=== PATIENT | female | born 1955 | race Caucasian/White ===

== ENCOUNTER 2017-08-30 14:08 | Emergency (ER) | payer MEDICARE ==
[~2017-08-30] VITALS: Ht 172.7 cm; Wt 68.0 kg
[~2017-08-30 14:08] MED LIST: ALBU90OI INH; ALBU90OI6 INH; ALPR.25 PO; ALPR.5; AMOX250 PO; ASPI81CH PO; CITA20 PO; CRUTCH2 XX; Catapres0.1 MG PO; Cymbalta60 MG; DIPH50 PO; DULO60 PO; GABA600 PO; HYDCHL25; HYDMOR2 PO; HYDMOR4; HYDRA25 PO; IBUP400 PO; LEVFLO500 PO; LORA10ER PO; MELATONIN 10 M1 EACH PO; METO25ER PO; METPRE4DP PO; MINO100 PO; OMEP10ER PO; ONDA4 PO; OXYACE5T PO; OXYC15ER PO; OXYC30ER PO; OXYC40ER PO; POTA10T PO; POTCHL10ER PO; POTCHL20ER PO; PRAM.5 PO; PSYL5.85P PO; Percocet 10-321 EACH PO; Percocet 5-3251 EACH PO; Roxicodone15 MG PO; SULTRIDS PO; TRAM50; VENL25 PO; ZOLP10 PO
[2017-08-30] MEDS ORDERED: Percocet 5-3251 EACH PO (14:53)
[2017-08-30] MEDS ORDERED: ASPI81CH PO (14:56)
[2018-02-22] MEDS ORDERED: Zofran Odt8 MG SL (13:24)
== END 2017-08-30 15:06 | disposition home or self-care (01) ==
LOC: ER 14:08
DX: K60.2 Anal fissure, unspecified (principal); F32.9 Major depressive disorder, single episode, unspecified; E78.5 Hyperlipidemia, unspecified; Z98.51 Tubal ligation status; Z88.5 Allergy status to narcotic agent; Z79.899 Other long term (current) drug therapy; Z79.82 Long term (current) use of aspirin
CPT/HCPCS: 99283

== ENCOUNTER 2017-09-05 10:24 | Emergency (ER) | payer MEDICARE ==
[~2017-09-05] VITALS: Ht 172.7 cm; Wt 65.8 kg
[2017-09-05] MEDS ORDERED: RECTASMOOTHE30 GM TOP (13:48)
[2017-09-05] MEDS ORDERED: Percocet 10-321 EACH PO (13:49)
[2018-02-22] MEDS ORDERED: Zofran Odt8 MG SL (13:24)
== END 2017-09-05 14:01 | disposition home or self-care (01) ==
LOC: ER 10:24
DX: K60.2 Anal fissure, unspecified (principal); F32.9 Major depressive disorder, single episode, unspecified; E78.5 Hyperlipidemia, unspecified; Z87.891 Personal history of nicotine dependence; Z88.5 Allergy status to narcotic agent; Z79.82 Long term (current) use of aspirin; Z79.899 Other long term (current) drug therapy
CPT/HCPCS: 99283

== ENCOUNTER 2017-10-04 17:57 | Emergency (ER) | payer MEDICARE ==
[~2017-10-04] VITALS: Ht 172.7 cm; Wt 65.8 kg
[~2017-10-04 17:57] MED LIST changes: +RECTASMOOTHE30 GM TOP
[2017-10-04] MEDS ORDERED: Percocet 5-3251 EACH PO (19:49)
[2017-10-04] MEDS ORDERED: Lomotil Tablet1 EACH PO (19:50)
[2018-02-22] MEDS ORDERED: Zofran Odt8 MG SL (13:24)
== END 2017-10-04 20:01 | disposition home or self-care (01) ==
LOC: ER 17:57
DX: K60.2 Anal fissure, unspecified (principal); K62.89 Other specified diseases of anus and rectum; Z88.5 Allergy status to narcotic agent; Z79.899 Other long term (current) drug therapy; Z79.891 Long term (current) use of opiate analgesic; Z79.82 Long term (current) use of aspirin; F32.9 Major depressive disorder, single episode, unspecified; E78.5 Hyperlipidemia, unspecified; Z87.891 Personal history of nicotine dependence
CPT/HCPCS: 99283

== ENCOUNTER 2017-11-14 10:14 | Emergency (ER) | payer MEDICARE ==
[~2017-11-14] VITALS: Ht 172.7 cm; Wt 61.2 kg
[~2017-11-14 10:14] MED LIST changes: +Lomotil Tablet1 EACH PO
[2017-11-14] MEDS ORDERED: HYDCHL25 PO (10:45)
[2017-11-14] MEDS ORDERED: RIFA300 PO (10:46)
[2017-11-14] MEDS ORDERED: CEPH250A PO (10:46)
[2017-11-14] MEDS ORDERED: METO25ER PO (10:47)
[2017-11-14] MEDS ORDERED: MONDOXYNE NL100 MG PO (10:47)
[2017-11-14] MEDS ORDERED: HYDR1TAB94 PO (10:59)
== END 2017-11-14 11:25 | disposition home or self-care (01) ==
LOC: ER 10:14
DX: R51 Headache (principal); J06.9 Acute upper respiratory infection, unspecified; A69.20 Lyme disease, unspecified; M79.1 Myalgia; Z88.5 Allergy status to narcotic agent; Z79.899 Other long term (current) drug therapy; Z79.82 Long term (current) use of aspirin; Z87.891 Personal history of nicotine dependence
CPT/HCPCS: 96372; 99283; J1885

== ENCOUNTER 2018-02-12 11:31 | Emergency (ER) | payer MEDICARE ==
[~2018-02-12] VITALS: Ht 175.3 cm; Wt 61.2 kg
[~2018-02-12 11:31] MED LIST changes: +CEPH250A PO; +HYDCHL25 PO; +HYDR1TAB94 PO; +MONDOXYNE NL100 MG PO; +RIFA300 PO
[2018-02-12] MEDS ORDERED: Voltaren100 GM TOP (12:44)
== END 2018-02-12 12:54 | disposition home or self-care (01) ==
LOC: ER 11:31
DX: M25.511 Pain in right shoulder (principal); M25.551 Pain in right hip; R51 Headache; W19.XXXA Unspecified fall, initial encounter; Z88.5 Allergy status to narcotic agent; Z79.899 Other long term (current) drug therapy; Z79.2 Long term (current) use of antibiotics; Z79.82 Long term (current) use of aspirin; Z79.891 Long term (current) use of opiate analgesic
CPT/HCPCS: 99282

== ENCOUNTER 2018-07-11 14:50 | Emergency (ER) | payer MEDICARE ==
[~2018-07-11] VITALS: Ht 175.3 cm; Wt 65.8 kg
[~2018-07-11 14:50] MED LIST changes: +Voltaren100 GM TOP; +Zofran Odt8 MG SL
[2018-07-11] MEDS ORDERED: CYCL10 PO (15:39)
== END 2018-07-11 15:56 | disposition home or self-care (01) ==
LOC: ER 14:50
DX: R07.81 Pleurodynia (principal); Z88.5 Allergy status to narcotic agent; Z79.899 Other long term (current) drug therapy; Z79.82 Long term (current) use of aspirin; Z87.891 Personal history of nicotine dependence
CPT/HCPCS: 96372; 99283-25; J1885

== ENCOUNTER 2019-08-01 13:57 | Day surgery (SDC) | payer MEDICARE ==
[~2019-08-01] VITALS: Ht 175.3 cm; Wt 64.0 kg
[~2019-08-01 13:57] MED LIST changes: +CYCL10 PO
== END 2019-08-01 16:57 | disposition home or self-care (01) ==
LOC: ORSCSDS 13:57
PROVIDERS: Internal Medicine Gastroenterology
PROC: 0DC68ZZ Extirpation of Matter from Stomach, Via Natural or Artificial Opening Endoscopic (ICD-10-PCS; principal; 2019-08-01 15:15)
PROC: 0DB68ZX Excision of Stomach, Via Natural or Artificial Opening Endoscopic, Diagnostic (ICD-10-PCS; principal; 2019-08-01 15:15)
PROC: 0DB98ZX Excision of Duodenum, Via Natural or Artificial Opening Endoscopic, Diagnostic (ICD-10-PCS; principal; 2019-08-01 15:15)
PROC: 0DB58ZX Excision of Esophagus, Via Natural or Artificial Opening Endoscopic, Diagnostic (ICD-10-PCS; principal; 2019-08-01 15:15)
DX: R13.10 Dysphagia, unspecified (principal); R10.84 Generalized abdominal pain; R63.4 Abnormal weight loss; R11.0 Nausea; R19.7 Diarrhea, unspecified; K20.8 Other esophagitis; K29.80 Duodenitis without bleeding; I10 Essential (primary) hypertension; E78.5 Hyperlipidemia, unspecified; A69.20 Lyme disease, unspecified; Z87.891 Personal history of nicotine dependence; Z79.899 Other long term (current) drug therapy
CPT/HCPCS: 87081; 88305; 88342; J2704; J7120

== ENCOUNTER → 2019-08-03 | Outpatient (CLI) | payer MEDICARE ==
[2019-08-05 17:07] LABS: FATS, NEUTRAL Normal (.); FATS, TOTAL Normal (.)
== END | disposition home or self-care (01) ==
LOC: LAB 16:45 → LAB SHORT 16:45 → LAB FUT 07-28 09:40
PROVIDERS: Internal Medicine Gastroenterology
DX: R10.84 Generalized abdominal pain (principal); R19.7 Diarrhea, unspecified; R11.0 Nausea; R63.4 Abnormal weight loss
CPT/HCPCS: 82705

== ENCOUNTER → 2019-09-26 | Outpatient (CLI) | payer MEDICARE ==
[2019-09-28 14:09] LABS: HPV 16 Negative (Negative); HPV 18 Negative (Negative); HPV OTHER HR TYPES Negative (Negative)
== END | disposition home or self-care (01) ==
LOC: LAB SHORT 19:01 → LAB 19:01
PROVIDERS: Physician Assistant
DX: Z01.419 Encounter for gynecological examination (general) (routine) without abnormal findings (principal); R39.198 Other difficulties with micturition
CPT/HCPCS: 87086; 87624; G0123

== ENCOUNTER 2020-10-14 14:58 | Emergency (ER) | payer MEDICARE, OTHER ==
[~2020-10-14] VITALS: Ht 175.3 cm; Wt 59.0 kg
[2020-10-14] MEDS ORDERED: LORA2 PO (15:12)
[2020-10-14 15:34] LABS: BASOPHILS ABSOLUTE AUTO 0.06 K/mm3 (0.00-0.23); BASOPHILS PERCENT AUTO 1 % (0-2); EOSINOPHILS ABSOLUTE AUTO 0.03 K/mm3 (0.00-0.68); EOSINOPHILS PERCENT AUTO 0 % (0-6); Hematocrit 50.5 % (33.0-51.0); Hemoglobin 17.3 g/dL (11.5-16.0); IMMATURE GRAN ABSOLUTE AUTO 0.02 K/mm3 (0.00-0.10); IMMATURE GRAN PERCENT AUTO 0 % (0-1); LYMPHOCYTES ABSOLUTE AUTO 2.05 K/mm3 (0.84-5.20); LYMPHOCYTES PERCENT AUTO 27 % (21-46); MONOCYTES ABSOLUTE AUTO 0.72 K/mm3 (0.16-1.47); MONOCYTES PERCENT AUTO 9 % (4-13); Mean Corpuscular HGB 30.5 pg (26.0-34.0); Mean Corpuscular HGB Conc 34.3 g/dL (31.5-36.5); Mean Corpuscular Volume 89 fL (80-100); Mean Platelet Volume 9.8 fL (9.1-12.4); NEUTROPHILS PERCENT AUTO 62 % (41-73); Platelet Count 310 K/mm3 (150-400); RDW Coefficient Variation 11.9 % (11.7-14.2); RDW Standard Deviation 38.9 fL (35.1-46.3); Red Blood Cell Count 5.68 M/mm3 (3.80-5.20); White Blood Cell Count 7.68 K/mm3 (4.00-11.30)
[2020-10-14 15:45] LABS: Alanine Aminotransfer (ALT/SGP 22 U/L (12-78); Albumin/Globulin Ratio 1.1 (0.8-1.8); Alk Phos 77 U/L (50-136); Anion Gap 6 mmol/L (6-16); Aspartate Aminotrans (AST/SGOT 17 U/L (12-37); Bilirubin, Total 0.6 mg/dL (0.1-1.0); Blood Urea Nitrogen 9 mg/dL (8-24); Bun/Creatinine Ratio 16.9 (12.0-20.0); CO2, Blood 33 mmol/L (21-32); Chloride, Blood 96 mmol/L (98-108); Creatinine, Blood 0.53 mg/dL (0.40-1.00); Globulin, Blood 3.8 g/dL (2.2-4.0); Glomerular Filtration Rate >60 (60-); Glucose, Blood 108 mg/dL (70-99); Potassium, Blood 3.8 mmol/L (3.5-5.5); Sodium, Blood 135 mmol/L (136-145); Total Protein, Blood 7.8 g/dL (6.4-8.2)
[2020-10-14 17:31] LABS: Source, Urine Clean Catch
[2020-10-14 17:51] LABS: Appearance, Urine Hazy (Clear); Bilirubin, Urine Neg (Neg); Blood, Urine Neg (Neg); Color, Urine Yellow (P-Yellow); Glucose Qualitative, Urine Neg (Neg); Ketones, Urine Neg (Neg); Leukocyte Esterase, Urine 1+ (Neg); Nitrite, Urine Neg (Neg); Protein, Urine 2+ (Neg); Specific Gravity, Urine 1.025 (1.003-1.022); Urobilinogen, Urine NORM (Normal)
[2020-10-14 18:06] LABS: Red Blood Cells, Urine 0-2 /hpf (0-2); White Blood Cells, Urine 0-2 /hpf (0-5)
[2020-10-14 18:07] LABS: Squamous Epithelial Cells Few /hpf (Few)
[2020-10-14 18:08] LABS: Bacteria Few /hpf; Mucus Mod (0-Heavy)
[2020-10-14] MEDS ORDERED: ONDA4 PO (18:21)
== END 2020-10-14 18:33 | disposition home or self-care (01) ==
LOC: ER 14:58
PROVIDERS: Physician Assistant
DX: N20.0 Calculus of kidney (principal); Z88.5 Allergy status to narcotic agent; Z79.899 Other long term (current) drug therapy; Z87.891 Personal history of nicotine dependence
CPT/HCPCS: 74176; 80053; 81001; 83690; 85025; 87086; 96374; 99285-25; A9270; J2405

== ENCOUNTER 2022-07-04 08:21 | Emergency (ER) | payer MEDICARE, OTHER ==
[~2022-07-04] VITALS: Ht 175.3 cm; Wt 59.0 kg
[~2022-07-04 08:21] MED LIST changes: +LORA2 PO
[2022-07-04 09:25] LABS: BASOPHILS ABSOLUTE AUTO 0.04 K/mm3 (0.00-0.23); BASOPHILS PERCENT AUTO 1 % (0-2); EOSINOPHILS ABSOLUTE AUTO 0.02 K/mm3 (0.00-0.68); EOSINOPHILS PERCENT AUTO 0 % (0-6); Hematocrit 51.6 % (33.0-51.0); Hemoglobin 17.7 g/dL (11.5-16.0); IMMATURE GRAN ABSOLUTE AUTO 0.02 K/mm3 (0.00-0.10); IMMATURE GRAN PERCENT AUTO 0 % (0-1); LYMPHOCYTES ABSOLUTE AUTO 1.74 K/mm3 (0.84-5.20); LYMPHOCYTES PERCENT AUTO 22 % (21-46); MONOCYTES ABSOLUTE AUTO 0.51 K/mm3 (0.16-1.47); MONOCYTES PERCENT AUTO 7 % (4-13); Mean Corpuscular HGB 30.6 pg (26.0-34.0); Mean Corpuscular HGB Conc 34.3 g/dL (31.5-36.5); Mean Corpuscular Volume 89 fL (80-100); Mean Platelet Volume 9.4 fL (9.1-12.4); NEUTROPHILS PERCENT AUTO 70 % (41-73); Platelet Count 277 K/mm3 (150-400); RDW Coefficient Variation 11.9 % (11.7-14.2); RDW Standard Deviation 38.8 fL (35.1-46.3); Red Blood Cell Count 5.79 M/mm3 (3.80-5.20); White Blood Cell Count 7.83 K/mm3 (4.00-11.30)
[2022-07-04 09:46] LABS: Albumin, Blood 4.4 g/dL (3.4-5.0); Albumin/Globulin Ratio 1.1 (0.8-1.8); Bilirubin, Total 0.7 mg/dL (0.1-1.0); Bun/Creatinine Ratio 16.8 (12.0-20.0); Creatinine, Blood 0.54 mg/dL (0.40-1.00); Potassium, Blood 3.8 mmol/L (3.5-5.5); Total Protein, Blood 8.4 g/dL (6.4-8.2)
[2022-07-04] MEDS ORDERED: DICY20 PO (12:35)
[2022-07-04] MEDS ORDERED: ONDA4ODT MM (12:35)
== END 2022-07-04 12:40 | disposition home or self-care (01) ==
LOC: ER 08:21
PROVIDERS: Physician Assistant
DX: M54.50 Low back pain, unspecified (principal); R10.30 Lower abdominal pain, unspecified; G89.29 Other chronic pain; R11.0 Nausea; Z88.5 Allergy status to narcotic agent; Z79.899 Other long term (current) drug therapy
CPT/HCPCS: 36415; 74177; 80053; 83605; 83690; 85025; J1790; J1885; J7030; Q9967

== ENCOUNTER → 2022-08-05 | Outpatient (CLI) | payer MEDICARE, OTHER ==
[~2022-08-05] MED LIST changes: +DICY20 PO; +ONDA4ODT MM
[2022-08-05 22:25] LABS: C-REACTIVE PROTEIN, EXT RANGE <0.290 mg/dL (0.000-0.300); CHOL/HDL RATIO 3.5; Cholesterol 268 mg/dL (50-200); HDL Cholesterol 76 mg/dL (>39); LDL/HDL RATIO 2.1; Low Density Lipoprotein Chol 161 mg/dL (0-110); Triglycerides 156 mg/dL (30-160); Very Low Density Lipoprot Chol 31 mg/dL (6-32)
== END | disposition home or self-care (01) ==
LOC: LAB SHORT 16:12 → LAB 16:12
PROVIDERS: Physician Assistant
DX: M25.50 Pain in unspecified joint (principal); I10 Essential (primary) hypertension; Z79.899 Other long term (current) drug therapy
CPT/HCPCS: 80061; 82306; 84443; 85651; 86038; 86140; 86430

== ENCOUNTER → 2022-12-08 | Outpatient (CLI) | payer MEDICARE, OTHER ==
[2022-12-09 13:32] LABS: Adenovirus F 40/41 Not Detected (NOT DETECT); Astrovirus Not Detected (NOT DETECT); Campylobacter Sp Not Detected (NOT DETECT); Cyclospora Cayetanensis Not Detected (NOT DETECT); E. Coli O157 Not Detected (NOT DETECT); Entamoeba Histolytica Not Detected (NOT DETECT); Enteroaggregative E. coli-EAEC Not Detected (NOT DETECT); Enteropathogenic E. coli-EPEC Not Detected (NOT DETECT); Enterotoxigenic E. coli-ETEC Not Detected (NOT DETECT); Giardia Lamblia Not Detected (NOT DETECT); Norovirus GI/GII Not Detected (NOT DETECT); Plesiomonas Shigelloides Not Detected (NOT DETECT); Rotavirus A Not Detected (NOT DETECT); Salmonella Sp Not Detected (NOT DETECT); Sapovirus Not Detected (NOT DETECT); Shiga Toxin-prod E. coli-STEC Not Detected (NOT DETECT); Shigella/Enteroin E. coli-EIEC Not Detected (NOT DETECT); Vibrio Cholerae Not Detected (NOT DETECT); Vibrio Sp Not Detected (NOT DETECT); Yersinia Enterocolitica Not Detected (NOT DETECT)
[2022-12-09 13:34] LABS: Cryptosporidium Not Detected (NOT DETECT)
== END | disposition home or self-care (01) ==
LOC: LAB SHORT 05:35 → LAB 05:35
PROVIDERS: Physician Assistant
DX: R19.7 Diarrhea, unspecified (principal)
CPT/HCPCS: 87324; 87507

== ENCOUNTER 2023-02-27 11:36 | Day surgery (SDC) | payer MEDICARE, OTHER ==
[~2023-02-27] VITALS: Ht 172.7 cm; Wt 60.5 kg
[2023-02-27] VITALS (12 sets, daily range): BP systolic 109–143; BP diastolic 56–108
[~2023-02-27 11:36] MED LIST changes: +DIPATR PO; +HYOS.125 PO; +LACT; +MULVITA PO; +OMEP20ER PO
[2023-02-27] MEDS ORDERED: DULO30 PO (12:00)
--- NOTE | 2023-02-27 12:26 | NUR ---
History, Chart, Medications and Allergies reviewed before start of procedure.Patient confirms NPO status and agrees with scheduled surgery. Lungs clear T/O to Auscultation. Patient States Post-Procedure ride home has been arranged.
--- NOTE | 2023-02-27 12:41 | NUR ---
02/27/23 1241 David Corona HISTORY, CHART, MEDICATIONS AND ALLERGIES REVIEWED BEFORE START OF PROCEDURE. PATIENT CONFIRMS NPO STATUS AND AGREES WITH SCHEDULED PROCEDURE. 3-LEAD EKG REVIEWED WITH PHYSICIAN PRIOR TO START OF PROCEDURE. MONITOR INTACT WITH CONTINUOUS PULSE OXIMETRY,CAPNOGRAPHY, 3-LEAD EKG, INTERMITTENT BP. SUPPLEMENTAL O2 TO BE TITRATED THROUGHOUT PROCEDURE TO MAINTAIN O2 SATURATION ABOVE 90%. PATIENT DETERMINED TO BE ASA APPROPRIATE FOR PROPOFOL SEDATION PRIOR TO START OF PROCEDURE BY . NC AT 3L/MIN
--- NOTE | 2023-02-27 12:54 | NUR ---
REPORT RECIED. PT SITTING UP IN BED. VSS ON ROOM AIR
--- NOTE | 2023-02-27 13:18 | NUR ---
Patient up to Ambulate independently. Gait steady. Discharge instructions reviewed with patient. Patient verbalizes understanding. Copy given to patient to take home. Discharged via wheelchair to private car for ride home.
== END 2023-02-27 13:25 | disposition home or self-care (01) ==
LOC: ORSCMMR 11:36 → ORD 12:45 → ORSCMMR 12:45
PROVIDERS: Internal Medicine Gastroenterology
PROC: 0DB98ZX Excision of Duodenum, Via Natural or Artificial Opening Endoscopic, Diagnostic (ICD-10-PCS; principal; 2023-02-27 12:45)
PROC: 0DB68ZX Excision of Stomach, Via Natural or Artificial Opening Endoscopic, Diagnostic (ICD-10-PCS; principal; 2023-02-27 12:45)
DX: R10.84 Generalized abdominal pain (principal); R11.2 Nausea with vomiting, unspecified; R19.4 Change in bowel habit; K29.70 Gastritis, unspecified, without bleeding; K44.9 Diaphragmatic hernia without obstruction or gangrene; K29.80 Duodenitis without bleeding; Q40.2 Other specified congenital malformations of stomach; Z83.71 Family history of colonic polyps; F41.9 Anxiety disorder, unspecified; Z87.891 Personal history of nicotine dependence; Z79.899 Other long term (current) drug therapy
CPT/HCPCS: 88305; 88342; J2704; J7120

== ENCOUNTER → 2023-05-19 | Outpatient (CLI) | payer MEDICARE, OTHER ==
[~2023-05-19] MED LIST changes: +ATOR40TA PO; +DRAMAMINE25 M1 PO; +DRAMAMINE25 M3 PO; +DULO30 PO; +DULOXETINE HCL60 M1 PO; +LORAZEPAM0.5 MG PO; +MELO7.5 PO; +MOBIC15 MG PO; -POTCHL20ER PO; -TRAM50; +TRAM50 PO
[2023-05-19 18:56] LABS: Bilirubin, Total 0.3 mg/dL (0.1-1.0); Bun/Creatinine Ratio 17.2 (12.0-20.0); Creatinine, Blood 0.82 mg/dL (0.40-1.00); Globulin, Blood 4.1 g/dL (2.2-4.0); Potassium, Blood 4.1 mmol/L (3.5-5.5); Total Protein, Blood 8.1 g/dL (6.4-8.2)
[2023-05-20 11:40] LABS: Candida species (DNA Probe) Negative (NEGATIVE); G. vaginalis (DNA Probe) Negative (NEGATIVE); T. vaginalis (DNA Probe) Negative (NEGATIVE)
[2023-05-22 13:09] LABS: A/G RATIO 1.1 (0.7-1.7); ALBUMIN 3.7 g/dL (2.9-4.4); ALPHA-1-GLOBULIN 0.4 g/dL (0.0-0.4); ALPHA-2-GLOBULIN 0.9 g/dL (0.4-1.0); BETA GLOBULIN 1.1 g/dL (0.7-1.3); GAMMA GLOBULIN 0.9 g/dL (0.4-1.8); GLOBULIN, TOTAL 3.3 g/dL (2.2-3.9); M-SPIKE Not Observed g/dL (Not Observed)
== END | disposition home or self-care (01) ==
LOC: LAB SHORT 17:15 → LAB 17:15
PROVIDERS: Physician Assistant
DX: E87.1 Hypo-osmolality and hyponatremia (principal); N89.8 Other specified noninflammatory disorders of vagina; R79.89 Other specified abnormal findings of blood chemistry
CPT/HCPCS: 80053; 84165; 87480; 87510; 87660

== ENCOUNTER 2023-06-27 12:55 | Inpatient (IN) | payer MEDICARE, OTHER ==
[~2023-06-27] VITALS: Ht 165.1 cm; Wt 59.9 kg
[2023-06-27 13:25] LABS: PCO2 Venous 45.6 mmHg (38-42); pH Blood Venous 7.42 (7.34-7.37)
[2023-06-27 13:26] LABS: Base Excess Venous 5.2 mmol/L; Bicarbonate Venous 28.3 mmol/L (24.0-30.0)
[2023-06-27 13:29] LABS: BASOPHILS ABSOLUTE AUTO 0.08 K/mm3 (0.00-0.23); BASOPHILS PERCENT AUTO 1 % (0-2); EOSINOPHILS ABSOLUTE AUTO 0.02 K/mm3 (0.00-0.68); EOSINOPHILS PERCENT AUTO 0 % (0-6); Hematocrit 48.5 % (33.0-51.0); Hemoglobin 15.9 g/dL (11.5-16.0); IMMATURE GRAN ABSOLUTE AUTO 0.09 K/mm3 (0.00-0.10); IMMATURE GRAN PERCENT AUTO 1 % (0-1); LYMPHOCYTES PERCENT AUTO 7 % (21-46); MONOCYTES ABSOLUTE AUTO 0.76 K/mm3 (0.16-1.47); MONOCYTES PERCENT AUTO 5 % (4-13); Mean Corpuscular HGB 30.1 pg (26.0-34.0); Mean Corpuscular HGB Conc 32.8 g/dL (31.5-36.5); Mean Corpuscular Volume 92 fL (80-100); Mean Platelet Volume 9.5 fL (9.1-12.4); NEUTROPHILS ABSOLUTE AUTO 13.81 K/mm3 (1.96-9.15); NEUTROPHILS PERCENT AUTO 87 % (41-73); Platelet Count 351 K/mm3 (150-400); RDW Coefficient Variation 11.9 % (11.7-14.2); RDW Standard Deviation 40.3 fL (35.1-46.3); Red Blood Cell Count 5.28 M/mm3 (3.80-5.20); White Blood Cell Count 15.86 K/mm3 (4.00-11.30)
[2023-06-27 13:41] LABS: Albumin, Blood 4.2 g/dL (3.4-5.0); Albumin/Globulin Ratio 1.3 (0.8-1.8); Bilirubin, Total 0.4 mg/dL (0.1-1.0); Bun/Creatinine Ratio 19.3 (12.0-20.0); Creatinine, Blood 0.57 mg/dL (0.40-1.00); Globulin, Blood 3.2 g/dL (2.2-4.0); Potassium, Blood 3.8 mmol/L (3.5-5.5); Total Protein, Blood 7.4 g/dL (6.4-8.2)
[2023-06-27 14:00] LABS: Calcium, Ionized (POC) 1.04 mmol/L (1.10-1.46); Chloride (POC) 101 mmol/L (98-108); Creatinine (POC) 0.5 mg/dL (0.6-1.0); Glucose (ISTAT POC) 111 mg/dL (70-99); Hemoglobin (POC) 16.7 g/dL (12.0-16.0); Potassium (POC) 3.7 mmol/L (3.5-5.5); Sodium (POC) 139 mmol/L (135-148); Total CO2 (POC) 28 mmol/L (21-32)
[2023-06-27 14:19] LABS: International Normalized Ratio 0.98; Prothrombin Time Results 10.3 Sec (9.7-11.5)
[2023-06-27 14:26] LABS: Source, Urine Foley catheter
[2023-06-27 14:40] LABS: Appearance, Urine Clear (Clear); Bilirubin, Urine Neg (Neg); Blood, Urine Neg (Neg); Color, Urine Yellow (P-Yellow); Glucose Qualitative, Urine Neg (Neg); Ketones, Urine Neg (Neg); Leukocyte Esterase, Urine Neg (Neg); Nitrite, Urine Neg (Neg); Protein, Urine Neg (Neg); Specific Gravity, Urine 1.015 (1.003-1.022); Urobilinogen, Urine NORM (Normal)
[2023-06-27] MEDS ORDERED: TRAM50 PO (14:56)
[2023-06-27] MEDS ORDERED: HYDCHL25 PO (14:57)
[2023-06-27 15:19] LABS: U Amphetamine Screen Not Detected; U Barbituate Screen Not Detected; U Benzodiazapine Screen DETECTED; U Buprenorphine Screen Not Detected; U Cannabinoids Screen Not Detected; U Cocaine Screen Not Detected; U Methadone Screen Not Detected; U Methamphetamine Screen Not Detected; U Opiates Screen Not Detected; U Oxycodone Screen Not Detected; U Phencyclidine Screen Not Detected
[2023-06-27 17:09] LABS: Prolactin 11.5 ng/mL (2.74-19.64)
[2023-06-27 17:11] LABS: Thyroid Stimulating Hormone 0.633 uIU/mL (0.360-4.800)
[2023-06-27 17:15] VITALS: BP 132/77
[2023-06-27 17:30] VITALS: BP 117/68
--- NOTE | 2023-06-27 17:42 | NUR ---
PT ADMITTED TO ICU AT 1715. PT ARRIVED ON [facility] VENT W PROPOFOL INITIALLY AT 50MCG. PT MOVING ALL 4 EXTREMITIES, PUPILS 3/3 SLUGGISH, BREATHING OVER VENT. PT DOES NOT OPENS EYES TO COMMAND OR FOLLOW SIMPLE COMMANDS. PROPOFOL DECREASED TO 20MCG. DR POP AT BEDSIDE WITHIN MINUTES OF ADMIT. CRITICAL HIGH TROPONIN GIVEN TO DR POP. PT IN WHAT APPEARS TO BE SINUS TACH W RATE 130'S. BP STABLE. FAMILY AT BEDSIDE AT 1730; PT'S DAUGHTER, RSLDCOSS-EA-UQY AND SON WHOM IS "DECISION MAKER". FAMILY DISCUSSED CODE STATUS AND PT'S WISHES. PT WAS DNR/DNI; ER UNAWARE WHEN PT INTUBATED. PT FAMILY REQUEST PT BE EXTUBATED AND PLACED ON COMFORT CARE. DR POP PLACING ORDERS NOW. LUNGS CLEAR, DIMINISHED TO BASES. BT'S ACTIVE T/O. NO EDEMA. FAINT PULSES T/O. CAP REFILL <3SEC. OGT CLAMPED. 8.0 TUBE AT 24CM TO LIP. SKIN PALE BUT WARM.
[2023-06-27 17:45] VITALS: BP 114/79
[2023-06-27 18:00] VITALS: BP 127/84
--- NOTE | 2023-06-27 18:01 | NUR ---
DR PLUMMER UPDATED. FAMILY IS READY FOR PT TO BE EXTUBATED TO COMFORT CARE. RT NOTIFIED.
--- NOTE | 2023-06-27 18:59 | NUR ---
PT EXTUBATED TO RA AT 1850. PT APPEARS COMFORTABLE, MINIMALLY RESPONSIVE. SATS 93%. RESP EVEN AND UNLABORED. FAMILY AT BEDSIDE.
--- NOTE | 2023-06-27 21:28 | NUR ---
ASSUMPTION OF CARE THIS RN ASSUMED CARE OF PT AT 1900, REPORT FROM ADILIA TOMLIN. PT NON-RESPONSIVE AT THIS TIME, NOT OPENING EYES. PT SPONTANEOUSLY MOVING EXTREMITIES BUT NO PURPOSEFUL MOVEMENT, LOCALIZING PAIN. VSS, PT COMFORT CARE, FAMILY AT BEDSIDE. THIS RN AND DAYSHIFT RN ANSWERED FAMILY'S QUESTIONS WELL PROVIDED EDUCATION ABOUT COMFORT CARE AND CARE PLAN CURRENTLY IN PLACE. SHINE CATHETER PATENT AND DRAINING CLEAR, YELLOW URINE TO GRAVITY.
[2023-06-27 22:55] VITALS: BP 141/85
[2023-06-28] VITALS (7 sets, daily range): BP systolic 15–157; BP diastolic 68–96
--- NOTE | 2023-06-28 01:22 | NUR ---
UPDATE AROUND 0100, THIS RN IN TO ROUND AND REPOSITION PT, PT IS BEING TURNED HER EYES OPENED. PT ASKING "WHAT HAPPEN, WHERE AM I". THIS RN ABLE TO REORIENT PT TO PLACE, TIME AND EVENT. PT ABLE TO STATE HER FULL NAME BUT UNABLE TO VERBALIZE . PT ABLE TO SAY "YES" WHEN ASKED IF SHE KNOWS HER . PT UNABLE TO RECALL PLACE OR ANY RECOLLECTION OF EVENT. PT FOLLOWING MOST COMMANDS, STRENGTH INTACT BLE AND ULE. VS; HRR - SINUS TACH HR 130 - 150'S, BP 169/110, RR 21, AND SPO2 93% ON RA. THIS RN NOTIFIED HOSPITALIST, NEW ORDERS FOR 5 ML LOPRESSOR IV PUSH. NEW ORDERS PLACED, THIS RN WILL ADMINISTER, REASSESS AND MONITOR NEEDED.
--- NOTE | 2023-06-28 05:02 | NUR ---
SHIFT SUMMARY PT MORE ALERT ALTHOUGH STILL SOMNOLENT, HOWEVER IS NOW RESPONDING AND OPENING EYES TO SOUND AND TACTILE STIMULI. PT IS STILL DISORIENTED TO EVENT, TIME AND PLACE. PT IS BEGINNING TO RESPOND IN MORE FULL AND COHERENT SENTENCES. PT ABLE TO ANSWER Y/N QUESTIONS WELL BUT VERBAL RESPONSES ARE SLOWED AND PT GROGGY. PT PT ABLE TO VERBALIZE THAT SHE "FEELS WEIRD AND FUNNY" BUT UNABLE TO STATE WHY OR WHERE. VSS AFTER ADMINISTRATION OF IV LOPRESSOR PUSH FOR HR; SEE PREVIOUS NURSING NOTE. SBP 140'S, HR 80 - 90'S, SPO2 91 - 94, AFEBRILE. PT ABLE TO VERBALIZE GENERAL PAIN, STATES " I AM ALWAYS IN PAIN". DECLINES MEDICATION FOR PAIN AT THIS TIME. THIS RN DOES NOT PT HAVING TREMORS/RIGIDITY IN BUE OCCASSIONALLY; UNKNOWN IF THIS IS BASELINE OR NOT. CURRENTLY PT IS RESTING, CALL LIGHT IN REACH. SHINE CATHETER PATENT AND DRAINING CLEAR, YELLOW URINE; 1100 MLS URINE OUTPUT.
--- NOTE | 2023-06-28 08:28 | NUR ---
CARE OF PT ASSUMED AT 0700. PT AWAKE AND ALERT IN BED. PT ORIENTED TO SELF AND KNOWS SHE'S IN THE HOSPITAL. PT HAS SOME DIFFICULTY STATING YEAR AND BIRTHDATE, PT HAS SYMPTOMS OF EXPRESSIVE APHASIA, SOME OF HER STATES ARE CONFUSED WELL. PT COMPLAINTS OF "SPINNING DIZZINESS". SINUS TACH AT 109, SATS 93% ON RA. DR PLUMMER UPDATED THIS AM; PALIATIVE CARE ORDERED, MESSAGE LEFT. DR POP AT BEDSIDE THIS AM. FÁTIMA IVY'Kell THIS AM. PT ABLE TO TOLERATE SIPS OF WATER.
[2023-06-28 08:32] LABS: BASOPHILS ABSOLUTE AUTO 0.04 K/mm3 (0.00-0.23); BASOPHILS PERCENT AUTO 0 % (0-2); EOSINOPHILS PERCENT AUTO 0 % (0-6); Hematocrit 45.4 % (33.0-51.0); IMMATURE GRAN ABSOLUTE AUTO 0.05 K/mm3 (0.00-0.10); IMMATURE GRAN PERCENT AUTO 0 % (0-1); LYMPHOCYTES ABSOLUTE AUTO 1.53 K/mm3 (0.84-5.20); LYMPHOCYTES PERCENT AUTO 10 % (21-46); MONOCYTES ABSOLUTE AUTO 1.58 K/mm3 (0.16-1.47); MONOCYTES PERCENT AUTO 10 % (4-13); Mean Corpuscular HGB 29.9 pg (26.0-34.0); Mean Corpuscular Volume 91 fL (80-100); Mean Platelet Volume 9.5 fL (9.1-12.4); NEUTROPHILS ABSOLUTE AUTO 12.96 K/mm3 (1.96-9.15); NEUTROPHILS PERCENT AUTO 80 % (41-73); Platelet Count 314 K/mm3 (150-400); RDW Coefficient Variation 12.3 % (11.7-14.2); RDW Standard Deviation 40.3 fL (35.1-46.3); Red Blood Cell Count 5.01 M/mm3 (3.80-5.20); White Blood Cell Count 16.16 K/mm3 (4.00-11.30)
[2023-06-28 08:59] LABS: Albumin, Blood 3.9 g/dL (3.4-5.0); Albumin/Globulin Ratio 1.3 (0.8-1.8); Bilirubin, Total 0.7 mg/dL (0.1-1.0); Calcium, Blood 9.5 mg/dL (8.5-10.1); Creatinine, Blood 0.56 mg/dL (0.40-1.00); Potassium, Blood 3.8 mmol/L (3.5-5.5); Total Protein, Blood 6.9 g/dL (6.4-8.2)
--- NOTE | 2023-06-28 10:58 | NUR ---
PT'S STATES THERE ARE [address] YEBOAH CONSULTED FOR POSSIBLE UNITENTIONAL OD, DR YEBOAH AT BEDSIDE, WILL RE-EVALUATE TOMORROW WHEN PT MORE CLEAR/LESS CONFUSED.
--- NOTE | 2023-06-28 17:49 | NUR ---
SHIFT SUMMARY PATIENT TRANSFERED FROM ICU AT APPROX 1400. PATIENT ALERT AND INTERACTIVE BUT CONFUSED. PATIENT ABLE TO BE REORIENTED BUT NEEDING TO BE FREQUENTLY. PATIENT STATING SHE CAN HERE HER KIDS FIGHTING IN THE [place] BUT FAMILY NOT PRESENT. PATIENT CONFUSED ABOUT DAY OF THE WEEK, TIME OF DAY AND WHAT HAPPENED. PATIENT COUGHING UP THICK YELLOW SECRETIONS AT TIMES. CONTINUES TO HAVE EPISODES OF DIZZINESS ESPECIALLY WITH ANY SUDDEN MOVEMENTS.
[2023-06-28] MEDS ORDERED: Aspir 8181 MG PO (21:19)
[2023-06-28] MEDS ORDERED: ATOM40 PO (21:19)
[2023-06-28] MEDS ORDERED: MECL25 PO (21:21)
[2023-06-28] MEDS ORDERED: MOBIC15 MG PO (21:21)
[2023-06-28] MEDS ORDERED: OMEP20ER PO (21:22)
[2023-06-28] MEDS ORDERED: MULVITA PO (21:22)
[2023-06-28] MEDS ORDERED: ONDA4ODT MM (21:22)
[2023-06-28] MEDS ORDERED: LISI20 PO (21:24)
[2023-06-28] MEDS ORDERED: BACLOFEN10 M4 PO (21:25)
[2023-06-28] MEDS ORDERED: Bentyl20 MG PO (21:25)
[2023-06-28] MEDS ORDERED: Diclofenac Sodi50 MG PO (21:26)
[2023-06-29 03:35] VITALS: BP 145/77
--- NOTE | 2023-06-29 05:28 | NUR ---
LIVESTOCK AUCTIONEER SUMMARY AWAKE AT INTERVALS. VSS. ASSISTED WITH BED PEREA A FEW TIMES TO VOID, SLIGHT BM NOTED WELL. VOICED NAUSEA BUT WAS ASLEEP WHEN NURSE RETURNED TO ROOM LATER. RAILS UP X 3 AND CALL LIGHT IN REACH FOR SAFETY. WILL CONTIUE TO MONITOR
[2023-06-29 05:44] LABS: BASOPHILS ABSOLUTE AUTO 0.06 K/mm3 (0.00-0.23); BASOPHILS PERCENT AUTO 1 % (0-2); EOSINOPHILS ABSOLUTE AUTO 0.02 K/mm3 (0.00-0.68); EOSINOPHILS PERCENT AUTO 0 % (0-6); Hematocrit 46.1 % (33.0-51.0); Hemoglobin 15.1 g/dL (11.5-16.0); IMMATURE GRAN ABSOLUTE AUTO 0.02 K/mm3 (0.00-0.10); IMMATURE GRAN PERCENT AUTO 0 % (0-1); LYMPHOCYTES ABSOLUTE AUTO 1.91 K/mm3 (0.84-5.20); LYMPHOCYTES PERCENT AUTO 20 % (21-46); MONOCYTES PERCENT AUTO 8 % (4-13); Mean Corpuscular HGB 30.1 pg (26.0-34.0); Mean Corpuscular HGB Conc 32.8 g/dL (31.5-36.5); Mean Corpuscular Volume 92 fL (80-100); Mean Platelet Volume 9.4 fL (9.1-12.4); NEUTROPHILS ABSOLUTE AUTO 6.79 K/mm3 (1.96-9.15); NEUTROPHILS PERCENT AUTO 71 % (41-73); Platelet Count 270 K/mm3 (150-400); RDW Coefficient Variation 12.3 % (11.7-14.2); RDW Standard Deviation 41.7 fL (35.1-46.3); Red Blood Cell Count 5.01 M/mm3 (3.80-5.20)
[2023-06-29 07:35] VITALS: BP 147/84
[2023-06-29 10:35] VITALS: BP 144/73
--- NOTE | 2023-06-29 11:27 | NUR ---
1020- NOTIFIED MD TORIBIO OF PT'S INCREASE IN HR AND CHANGE IN RHYTHM SINCE PT UP TO BSC. SAID TO GIVE 5MG IV METOPROLOL IV PUSH NOW.
[2023-06-29 12:13] LABS: International Normalized Ratio 0.97; Prothrombin Time Results 10.2 Sec (9.7-11.5)
[2023-06-29 13:08] VITALS: BP 138/93
[2023-06-29 15:31] VITALS: BP 148/82
[2023-06-29 19:16] VITALS: BP 148/77
--- NOTE | 2023-06-29 19:23 | NUR ---
SUMMARY- AAOX2-3, X2 ASSIST TO BSC. ACUTE EVENTS DOCUMENTED IN EARLIER NOTES.
--- NOTE | 2023-06-29 19:59 | NUR ---
VSS. CHEST DISCOMFORT MINIMAL PER PT STATEMENT. HOB ELEVATED. NO NOTED ACUTE DISTRESS. CALL LIGHT IN REACH. RAILS UP X 2. WILL CONT TO MONITOR
[2023-06-30 03:18] VITALS: BP 143/70
[2023-06-30 03:31] LABS: BASOPHILS ABSOLUTE AUTO 0.04 K/mm3 (0.00-0.23); BASOPHILS PERCENT AUTO 1 % (0-2); EOSINOPHILS ABSOLUTE AUTO 0.11 K/mm3 (0.00-0.68); EOSINOPHILS PERCENT AUTO 1 % (0-6); Hemoglobin 14.5 g/dL (11.5-16.0); IMMATURE GRAN ABSOLUTE AUTO 0.03 K/mm3 (0.00-0.10); IMMATURE GRAN PERCENT AUTO 0 % (0-1); LYMPHOCYTES ABSOLUTE AUTO 2.12 K/mm3 (0.84-5.20); LYMPHOCYTES PERCENT AUTO 26 % (21-46); MONOCYTES ABSOLUTE AUTO 0.73 K/mm3 (0.16-1.47); MONOCYTES PERCENT AUTO 9 % (4-13); Mean Corpuscular HGB Conc 32.2 g/dL (31.5-36.5); Mean Corpuscular Volume 93 fL (80-100); Mean Platelet Volume 9.4 fL (9.1-12.4); NEUTROPHILS PERCENT AUTO 63 % (41-73); Platelet Count 250 K/mm3 (150-400); RDW Coefficient Variation 11.9 % (11.7-14.2); RDW Standard Deviation 41.1 fL (35.1-46.3); Red Blood Cell Count 4.84 M/mm3 (3.80-5.20); White Blood Cell Count 8.13 K/mm3 (4.00-11.30)
[2023-06-30 03:57] LABS: Bun/Creatinine Ratio 40.8 (12.0-20.0); Calcium, Blood 8.8 mg/dL (8.5-10.1); Creatinine, Blood 0.49 mg/dL (0.40-1.00); Potassium, Blood 3.5 mmol/L (3.5-5.5)
--- NOTE | 2023-06-30 06:14 | NUR ---
ADHESIVE BANDAGE MACHINE OPERATOR SUMMARY VSS. HEPARIN DRIP CONTINUES, LABS DRAWN AND DRIP WAS CHANGED TO 17 U/KG, AT 20.4 ML/HR. WAS NAUSEATED AND MD NOTIFIED AND PT RECEIVED ZOFRAN IV, MED EFFECTIVE. INTERMITTENT CONGESTED COUGH, BUT LUNG SOUNDS NOT CONGESTED, BUT DIMINISHED PER AUSCULTATION. MD ORDERED TESSALON PERLS. HAS BUSHRA RETING QUIETLY AT INTERVALS, AWAKE INTERMITTENTLY AND REQUESTED BEDPAN FOR VOIDING. NO C/O CHEST PAIN. NO NOTED DIFFICULTY IN BRATHING - OTHER THAN COUGHING MENTIONED. MED TELE SR AT 70. NPO SINCE MIDNIGHT FOR DAY 2 (OF 2) CARDIAC STRESS TESTS. CALL LIGHT IN REACH. WILL CONTINUE TO MONITOR
[2023-06-30 07:48] VITALS: BP 142/73
[2023-06-30 16:11] VITALS: BP 126/64
[2023-06-30 19:06] VITALS: BP 123/64
--- NOTE | 2023-06-30 19:36 | NUR ---
SHIFT SUMMARY PATIENT WITH PAIN AND ANXIETY, MEDICATED PER EMAR. PATIENT UP TO COMMODE TODAY, HR INCREASED MAX UP TO 110 SINUS RYTHM WITH EXERTION. PATIENT CONTINUES TO REPORT INCREASED VERTIGO UPON STANDING VS LYING DOWN.
--- NOTE | 2023-07-01 03:24 | NUR ---
RUSTIC TERRAZZO SETTER SUMMARY VSS. HEPARIN DRIP CONTINUES AT 17 U/KG PER MIN - 20.4 ML/HR. ALERT AND ORIENTED X 4. HAS BEEN RESTING QUIETLY WITH INTERMITTENT EPISODES OF WAKEFULNESS, USUALLY FOR REQUESTS FOR BED PEREA TO VOID.Ubi SR. LUNG SOUNDS DIM IN BASES PER AUSCULTATION. CALL LIGHT IN REACH. RAILS UP X 2 FOR SAFETY. LEGS ELEVATED ON PILLOWS FOR COMFORT. WILL CONTINUE TO MONITOR.
[2023-07-01 03:53] VITALS: BP 92/53
[2023-07-01 05:57] LABS: Hematocrit 44.1 % (33.0-51.0); Hemoglobin 14.6 g/dL (11.5-16.0); Mean Platelet Volume 9.7 fL (9.1-12.4); Platelet Count 245 K/mm3 (150-400)
[2023-07-01 06:03] LABS: Bun/Creatinine Ratio 24.6 (12.0-20.0); Calcium, Blood 9.1 mg/dL (8.5-10.1); Creatinine, Blood 0.57 mg/dL (0.40-1.00); Magnesium, Blood 2.1 mg/dL (1.6-2.4); Potassium, Blood 3.6 mmol/L (3.5-5.5)
[2023-07-01 07:28] VITALS: BP 130/77
--- NOTE | 2023-07-01 11:49 | NUR ---
PHONE CALL TO DR MOCK OFFICE, NANCY CARO, REINFORCING STEEL MACHINE OPERATOR FOR THAT PATIENT RESULTS OF STRESS TEST ARE IN, PATIENT HAD 9 BEAT RUN OF VTACH AROUND 5 AM, OTHERWISE NO NEW CARDIAC ISSUES. PATIENT STAYING IN SINUS RYTHM 80-90S THIS AM ON INITIAL ASSESSMENT.
--- NOTE | 2023-07-01 19:22 | NUR ---
SHIFT SUMMARY PATIENT WITH SEVERAL OPTICAL MIGRAINES TODAY, REPORTS HISTORY OF THESE, DR TORIBIO NOTIFIED, PREGABLIN DISCONTINUED. PATIENT UP TO BEDSIDE COMMODE WITHOUT CALLS FROM TELEMETRY. SHE CONTINUES TO HAVE VERTIGO WHICH WORSENS FROM LAYING TO SITTING OR STANDING. AOX4 PLEASANT AND COOPERATIVE WITH CARE, SHE HAS PAIN AND ANXIETY AND MEDICATED PER EMAR WITH RELIEF. BED IN LOW POSITION. CALL LIGHT IN REACH. PATIENT CALLS APPROPRIATLY.
[2023-07-01 20:03] VITALS: BP 141/73
[2023-07-02] VITALS (14 sets, daily range): BP systolic 80–150; BP diastolic 41–103
[2023-07-02 03:24] LABS: Hematocrit 40.4 % (33.0-51.0); Hemoglobin 13.5 g/dL (11.5-16.0); Mean Platelet Volume 9.6 fL (9.1-12.4); Platelet Count 220 K/mm3 (150-400)
--- NOTE | 2023-07-02 05:31 | NUR ---
SHIFT SUMMARY NOC PT A/O X 3-4. PLEASANT AND COOPERATIVE WITH CARE. NO ACUTE CHANGES TO REPORT. PT NPO AFTER MIDNIGHT IN ANTICIPATION OF ANGIOGRAM PROCEDURE 07/02/23. PT ON TELE RUNNING NSR IN 60'S. PT ON HEPARIN DRIP INFUSING 15 U/KG/HR AT A RATE OF 18 ML/HR. PT USING BSC WITH ASSISTANCE. PT IS CURRENTLY RESTING WITH BED IN LOWEST POSITION, AND CALL LIGHT WITHIN REACH.
--- NOTE | 2023-07-02 13:08 | NUR ---
PT LEFT FOR ANGIOGRAM @1145 VIA WHEELCHAIR. HEPARIN STOPPED FOR PROCEDURE. REPORT GIVEN TO PCU 21 NURSE.
--- NOTE | 2023-07-02 16:59 | NUR ---
PT ARRIVED FROM INSTALLATIONS INSPECTOR AT APROX 1300. PT A&OX4, TR BAND TO R RADIAL SITE, FULLY INFLATED, NO BLEEDING OR HEMATOMA AT SITE. PT ORIENTED TO CALL LIGHT, ROOM AND UNIT ROUTINES, PT VERBALIZES UNDERSTANDING AND HAS NO QUESTIONS OR CONCERNS AT THIS TIME. VSS, SEE DOCUMENTATION. PT DENIES ANY CHEST PAIN OR PRESSURE. TR BAND RECOVERED PER MD ORDERS WITHOUT ANY COMPLICATIONS. WRIST BRACE REMAINS IN PLACE AND PT VERBALIZES UNDERSTANDING OF MOVEMENT RESTRICTIONS. DR MOCK IN TO UPDATE PT AND FAMILY AT BEDSIDE. NO ACUTE CHANGES SINCE ARRIVAL TO PCU 19. PT IS ABLE TO USE CALL LIGHT FOR NEEDS. CALL LIGHT IN REACH, BED LOW AND LOCKED. WILL CONTINUE TO MONITOR/TREAT AND GIVE REPORT TO ONCOMING RN.
[2023-07-03 03:44] VITALS: BP 115/56
--- NOTE | 2023-07-03 04:23 | NUR ---
SHIFT SUMMARY. PT HAS BEEN DOING WELL THROUGHOUT SHIFT. AOX4, PLEASANT, COOPERATIVE WITH CARE. TR BAND REMOVED FROM RWR SITE AND TEGADERM APPLIED WITH BACKBOARD EARLY IN SHIFT. SINCE THAT TIME, PT HAS CONTINUED TO DENY ANY PAIN AT SITE AND DRESSING REMAINS C/D/I. VITALS REMAIN STABLE. CALLSA PPROPRIATELY FOR ASSISTANCE, STEADY 1PERSON TRANSFER TO BATHROOM. PAIN WELL MANAGED VIA EMAR. SOME ANXIETY REPORTED LATE LAST NIGHT, WELL MANAGED VIA PRN ATIVAN AND SINCE ADMINISTRATION PT HAS BEEN ABLE TO SLEEP COMFORTABLY THROUGHOUT MOST OF SHIFT. PT DID NOTE SOME CONCERNS OF RECENTLY INCREASINGLY BLURRY VISION ON SHIFT ASSESMENT. REVIEWED NOTES, AWARE AND ENCOURAGED F/U WITH OPTHALMOLOGY WHICH PT REPORTS INTENDING TO DO. TELE ON THROUGH SHIFT WITH NO EVENTS THUS FAR. HAS SATURATED WELL ON ROOM AIR THROUGHOUT SHIFT. BED LOCKED IN LOWEST POSITION. CALL LIGHT LEFT WITHIN REACH.
[2023-07-03 09:31] VITALS: BP 126/55
[2023-07-03] MEDS ORDERED: JARDIANCE10 MG PO (11:54)
[2023-07-03] MEDS ORDERED: ELIQUIS5 M2 PO (11:54)
[2023-07-03 12:01] VITALS: BP 118/62
--- NOTE | 2023-07-03 14:46 | NUR ---
DISCHARGE NOTE PT WAS ALERT AND ORIENTED X 4, VSS. SHE DENIED FEELINGS OF CHEST PAIN/PRESSURE, SHE DENIED FEELING SOB. GENERALIZED PAIN AND HEADACHE REPORTED, PLEASE SEE EMAR FOR PAIN MANAGEMENT. SHE WAS INDEPENDENT UPON AMULATION UPON DISCHARGE AND APPEARED STEADY ON HER FEET, WHEELCHAIR USED TO D/C. R RADIAL ACCESS SITE REMAINED FREE FROM SIGNS OF APPARENT BLEEDING/HEMATOMA. PT AND HER WERE EDUCATED REGARDING RADIAL ACCESS SITE CARE, DISCHARGE MEDICATIONS, AND FOLLOW UP APPOINTMENTS. PT WAS STABLE UPON DISCHARGE. SHE LEFT PCU AT APPROX. 1435 W/ ALL OF PERSONAL BELONGINGS. THIS RN REMOVED PERIPHERAL IV.
== END 2023-07-03 14:35 | disposition home health service (06) | DRG 917 ==
LOC: ER 12:55 → ICUE 15:27 → MEDS 15:27 → PCU 15:27 → ICUE 15:55 → MEDS 06-28 12:19 → PCU 07-02 12:07
PROVIDERS: Emergency Medicine; Internal Medicine; Internal Medicine Cardiovascular Disease; ADMIT Internal Medicine
PROC: 0BH17EZ Insertion of Endotracheal Airway into Trachea, Via Natural or Artificial Opening (ICD-10-PCS; 2023-06-28)
PROC: 5A2204Z Restoration of Cardiac Rhythm, Single (ICD-10-PCS; 2023-06-28)
PROC: 5A1935Z Respiratory Ventilation, Less than 24 Consecutive Hours (ICD-10-PCS; 2023-06-28)
PROC: B2111ZZ Fluoroscopy of Multiple Coronary Arteries using Low Osmolar Contrast (ICD-10-PCS; principal; 2023-07-02)
DX: T42.4X1A Poisoning by benzodiazepines, accidental (unintentional), initial encounter (principal); G92.8 Other toxic encephalopathy; J96.01 Acute respiratory failure with hypoxia; I48.92 Unspecified atrial flutter; I42.8 Other cardiomyopathies; N17.9 Acute kidney failure, unspecified; Z66 Do not resuscitate; D72.829 Elevated white blood cell count, unspecified; I10 Essential (primary) hypertension; F41.9 Anxiety disorder, unspecified; G50.0 Trigeminal neuralgia; G35 Multiple sclerosis; G89.29 Other chronic pain; K21.9 Gastro-esophageal reflux disease without esophagitis; F32.A Depression, unspecified; E04.9 Nontoxic goiter, unspecified; M79.7 Fibromyalgia; I48.0 Paroxysmal atrial fibrillation; E78.5 Hyperlipidemia, unspecified; I95.2 Hypotension due to drugs; T50.995A Adverse effect of other drugs, medicaments and biological substances, initial encounter; Z86.73 Personal history of transient ischemic attack (TIA), and cerebral infarction without residual deficits; Z87.891 Personal history of nicotine dependence
CPT/HCPCS: 31500; 36415; 51702; 70450; 70496; 70498; 71045; 76937; 78452; 80047; 80048; 80053; 81003; 82140; 82803; 82947; 83735; 83880; 84145; 84146; 84443; 84484; 85014; 85018; 85025; 85049; 85610; 85651; 85730; 93005; 93010; 93017; 93454; 94002; 96361-59; 96374-59; 97110; 97116; 97162; 97530; 99152; 99291-25; 99292; A9270; A9500; C1769; C1887; C1894; C8929; C9113; J0330; J1644; J1650; J2250; J2270; J2405; J2704; J2785; J3010; J7030; J7050; Q9957; Q9967

== ENCOUNTER 2024-05-15 11:48 | Inpatient (IN) | payer MEDICARE, OTHER ==
[~2024-05-15] VITALS: Ht 167.6 cm; Wt 60.7 kg
[~2024-05-15 11:48] MED LIST changes: +ATOM40 PO; +Aspir 8181 MG PO; +BACLOFEN10 M4 PO; +Bentyl20 MG PO; +Diclofenac Sodi50 MG PO; +ELIQUIS5 M2 PO; +JARDIANCE10 MG PO; +LISI20 PO; +MECL25 PO
[2024-05-15 12:31] LABS: BASOPHILS ABSOLUTE AUTO 0.04 K/mm3 (0.00-0.23); BASOPHILS PERCENT AUTO 0 % (0-2); EOSINOPHILS ABSOLUTE AUTO 0.01 K/mm3 (0.00-0.68); EOSINOPHILS PERCENT AUTO 0 % (0-6); Hematocrit 45.5 % (33.0-51.0); Hemoglobin 15.5 g/dL (11.5-16.0); IMMATURE GRAN ABSOLUTE AUTO 0.04 K/mm3 (0.00-0.10); IMMATURE GRAN PERCENT AUTO 0 % (0-1); LYMPHOCYTES ABSOLUTE AUTO 0.83 K/mm3 (0.84-5.20); LYMPHOCYTES PERCENT AUTO 8 % (21-46); MONOCYTES ABSOLUTE AUTO 0.64 K/mm3 (0.16-1.47); MONOCYTES PERCENT AUTO 6 % (4-13); Mean Corpuscular HGB 31.7 pg (26.0-34.0); Mean Corpuscular HGB Conc 34.1 g/dL (31.5-36.5); Mean Corpuscular Volume 93 fL (80-100); Mean Platelet Volume 9.4 fL (9.1-12.4); NEUTROPHILS ABSOLUTE AUTO 9.27 K/mm3 (1.96-9.15); NEUTROPHILS PERCENT AUTO 86 % (41-73); Platelet Count 227 K/mm3 (150-400); RDW Coefficient Variation 11.7 % (11.7-14.2); RDW Standard Deviation 40.4 fL (35.1-46.3); Red Blood Cell Count 4.89 M/mm3 (3.80-5.20); White Blood Cell Count 10.83 K/mm3 (4.00-11.30)
[2024-05-15 12:49] LABS: Alanine Aminotransfer (ALT/SGP 13 U/L (12-78); Albumin, Blood 3.4 g/dL (3.4-5.0); Albumin/Globulin Ratio 1.2 (0.8-1.8); Alk Phos 60 U/L (50-136); Anion Gap 8 mmol/L (3-11); Aspartate Aminotrans (AST/SGOT 23 U/L (12-37); Bilirubin, Total 0.7 mg/dL (0.1-1.0); Blood Urea Nitrogen 9 mg/dL (8-24); Bun/Creatinine Ratio 17.1 (12.0-20.0); CO2, Blood 29 mmol/L (21-32); Calcium, Blood 8.6 mg/dL (8.5-10.1); Chloride, Blood 100 mmol/L (98-108); Creatinine, Blood 0.53 mg/dL (0.40-1.00); Ethanol (Alcohol), Blood, Med <3 mg/dL; Globulin, Blood 2.8 g/dL (2.2-4.0); Glomerular Filtration Rate 99 (60-); Glucose, Blood 144 mg/dL (70-99); Sodium, Blood 133 mmol/L (136-145); Total Protein, Blood 6.2 g/dL (6.4-8.2)
[2024-05-15] MEDS ORDERED: NS 1,000 ML IV SCH (13:30)
[2024-05-15 13:48] LABS: Acetaminophen, Random 2.1 ug/mL (10.0-30.0); Salicylate 1.7 mg/dL (2.8-20.0); Thyroxine (T4) 8.6 ug/dL (4.8-13.9)
[2024-05-15] MEDS ORDERED: levETIRAcetam 1,500 MG in NS 100 ML IV ONE (14:05)
[2024-05-15 14:18] LABS: Source, Urine Foley catheter
[2024-05-15 14:28] LABS: Appearance, Urine Clear (Clear); Bilirubin, Urine Neg (Neg); Blood, Urine Neg (Neg); Color, Urine Yellow (P-Yellow); Glucose Qualitative, Urine 3+ (Neg); Ketones, Urine Neg (Neg); Leukocyte Esterase, Urine Neg (Neg); Nitrite, Urine Neg (Neg); Protein, Urine 2+ (Neg); Specific Gravity, Urine 1.015 (1.003-1.022); Urobilinogen, Urine NORM (Normal)
[2024-05-15 14:35] LABS: Bacteria Many /hpf; Red Blood Cells, Urine 0-2 /hpf (0-2); Squamous Epithelial Cells Rare /hpf (Few)
[2024-05-15 14:38] LABS: U Amphetamine Screen Not Detected; U Barbituate Screen Not Detected; U Benzodiazapine Screen Not Detected; U Buprenorphine Screen Not Detected; U Cannabinoids Screen Not Detected; U Cocaine Screen Not Detected; U Methadone Screen Not Detected; U Methamphetamine Screen Not Detected; U Opiates Screen Not Detected; U Oxycodone Screen Not Detected; U Phencyclidine Screen Not Detected
[2024-05-15] MEDS ORDERED: FLU VACC TS2024-25(6MOS UP)/PF 45 MCG/0.5 ML SYRINGE IM SCH (15:55)
[2024-05-15] MEDS ORDERED: D5W-1/2NS 1,000 ML IV SCH (16:20)
[2024-05-15 17:11] VITALS: BP 147/79
[2024-05-15] MEDS ORDERED: Insulin Human Lispro 100 Units/ML 3ML Syringe SC SCH (18:00)
[2024-05-15] MEDS ORDERED: Metoprolol Tartrate 1 MG/ML 5 ML VIAL IV SCH (18:00)
[2024-05-15 18:33] VITALS: BP 152/81
--- NOTE | 2024-05-15 19:18 | NUR ---
ADMISSION NOTE: PATIENT ARRIVES TO ROOM AT 1658 VIA GURNEY FROM ER FOR DX'S OF CVA. PATIENT TRANSFERRED TO BED c 3 MAX ASSIST USING SLIDER SHEET. PATIENT NOT ABLE TO CONTRIBUTE ANY MEDICAL HX D/T AMS. PATIENT ALERT AND ORIENTED TO SELF ONLY, MUMBLED SPEECH, PERRLA WNL, WEAK CHANGE OF ADDRESS CLERK TO L HAND AND BLE'S. PATIENT DENIES CP/PRESSURE, SOB, AND DIZZINESS. PATIENT ON TELE, SR HR IN THE 80'S BPM, VSS. PATIENT ON RA, SATTING 98%. PATIENT IS CURRENTLY NPO c ST EVAL ORDERED. PATIENT HAS SHINE AND WAS PLACED IN ED, PATENT DRAINING YELLOW URINE TO GRAVITY. PATIENT HAS PIV TO RAC INFUSING D5 1/2 NS AT 75 MLS/HR. VITAL SIGNS REVIEWED. BED ALARM ON FOR SAFETY. CALL LIGHT IN REACH.
[2024-05-15] MEDS ORDERED: VITAMIN D32000 UNI1 PO (19:31)
[2024-05-15] MEDS ORDERED: DICLOFENAC SODI50 GM TOP (19:31)
[2024-05-15] MEDS ORDERED: REMERON1510 PO (19:33)
[2024-05-15 19:46] VITALS: BP 136/77
[2024-05-15] MEDS ORDERED: levETIRAcetam 500 MG in NS 100 ML IV SCH (21:00)
[2024-05-16] VITALS (7 sets, daily range): BP systolic 137–150; BP diastolic 70–101
--- NOTE | 2024-05-16 05:22 | NUR ---
PT ADMITED ON 05/15/24 TO RU[address]A. CT AND CXR CLEAR. PT IS ALERT, ORIENTED TO SELF AND PLACE. CONFUSED TO WHY SHE IS IN HOSPITAL. MENTATION SLOWLY IMPROVING THROUGHOUT NIGHT. TELE SR 70'S -90'S. RA. SHINE IN PLACE. ADVANCE DIET TOLERATED. # 20 TO RAC WITH 1/2D5 75ML/HR INFUSING WITHOUT DIFFICULTY. CALLED AT BEGINING OF SHIFT TO FILL OUT MRI PAPERWORK, PAPERWORK FAXED TO MRI. WILL BE TO HOSPITAL CONCRETE LABORER.
[2024-05-16 05:56] LABS: Hematocrit 45.2 % (33.0-51.0); Hemoglobin 15.2 g/dL (11.5-16.0); Mean Corpuscular HGB 31.8 pg (26.0-34.0); Mean Corpuscular HGB Conc 33.6 g/dL (31.5-36.5); Mean Corpuscular Volume 95 fL (80-100); Mean Platelet Volume 9.5 fL (9.1-12.4); Platelet Count 224 K/mm3 (150-400); RDW Coefficient Variation 11.9 % (11.7-14.2); RDW Standard Deviation 41.3 fL (35.1-46.3); Red Blood Cell Count 4.78 M/mm3 (3.80-5.20); White Blood Cell Count 10.44 K/mm3 (4.00-11.30)
[2024-05-16 06:20] LABS: Bun/Creatinine Ratio 14.5 (12.0-20.0); Calcium, Blood 8.9 mg/dL (8.5-10.1); Creatinine, Blood 0.62 mg/dL (0.40-1.00); Potassium, Blood 3.2 mmol/L (3.5-5.5)
[2024-05-16] MEDS ORDERED: NS 250 ML IV PRN (08:00)
[2024-05-16] MEDS ORDERED: Potassium Chl 20MEQ/Water100ML 100 ML IV SCH (08:40)
[2024-05-16] MEDS ORDERED: Ondansetron HCl 2 MG / ML 2ML Vial IV PRN (09:40)
[2024-05-16] MEDS ORDERED: LORazepam 0.5 MG Tab PO PRN (15:05)
[2024-05-16] MEDS ORDERED: Meclizine HCl 25 MG Tab PO PRN (15:05)
[2024-05-16] MEDS ORDERED: Dicyclomine HCl 20 MG Tab PO PRN (15:10)
[2024-05-16] MEDS ORDERED: Diclofenac Sodium 100 GM TUBE TOP PRN (15:15)
[2024-05-16] MEDS ORDERED: Ketorolac Tromethamine 30mg Vial IV ONE (16:05)
--- NOTE | 2024-05-16 18:21 | NUR ---
SHIFT SUMMARY PT NOTED TO BE A&OX3-4. PT CONT WORK UP FOR CVA THIS SHIFT AWAITNING MRI AND EGG RESUTLS. . HOME MEDICATION RESTARTED. [facility] DONE TODAY AND RECOMMENDED SOFT BITE SIZE DIET WITH THIN LIQUIDS.
[2024-05-16] MEDS ORDERED: GuaiFENesin 600 MG TabCR PO SCH (21:00)
[2024-05-16] MEDS ORDERED: LevETIRAcetam 500 MG Tab PO SCH (21:00)
[2024-05-16] MEDS ORDERED: Metoprolol Succinate 50 MG TABCR PO SCH (21:00)
[2024-05-16] MEDS ORDERED: Baclofen 10 MG Tab PO SCH (21:00)
[2024-05-16] MEDS ORDERED: Mirtazapine 15 MG Tab PO SCH (21:00)
[2024-05-16] MEDS ORDERED: Apixaban 5 MG Tab PO SCH (21:00)
[2024-05-17 05:12] VITALS: BP 140/74
[2024-05-17] MEDS ORDERED: Omeprazole 20 MG CapCR PO SCH (06:00)
--- NOTE | 2024-05-17 06:54 | NUR ---
PT ADMITTE 05/15/24 RULE OUT CVA. AAOX4 WITH CONFUSION TO WHY SHE IS IN HOSPITAL, SYNCOPE EPISODE AT HOME. TELE KENDALL @ 57. RA. FÁTIMA CRAWLEY DC'D, @ 0500, NO VOID AT END OF SHIFT. PT AMBULATED TO BR WITH WALKER AND CONTACT ASSIST, STRONG ENCOURAGEMENT NEEDED. SNF OR HOME, PT LEANING TOWARDS SNF.
[2024-05-17 07:20] LABS: Bun/Creatinine Ratio 18.3 (12.0-20.0); Calcium, Blood 9.1 mg/dL (8.5-10.1); Creatinine, Blood 0.66 mg/dL (0.40-1.00); Magnesium, Blood 1.7 mg/dL (1.6-2.4); Potassium, Blood 3.8 mmol/L (3.5-5.5)
[2024-05-17 08:00] VITALS: BP 130/50
[2024-05-17] MEDS ORDERED: DULoxetine HCL 60 MG Capsule DR PO SCH (09:00)
[2024-05-17] MEDS ORDERED: Cholecalciferol 1000 Unit Tablet (=25MCG) PO SCH (09:00)
[2024-05-17 11:01] LABS: Free Thyroxine 0.95 ng/dL (0.70-1.60); Thyroid Stimulating Hormone 2.28 uIU/mL (0.360-4.800); Triiodothyronine, Free 1.82 pg/mL (2.18-3.98)
[2024-05-17 16:15] VITALS: BP 134/54
--- NOTE | 2024-05-17 16:50 | NUR ---
pt pleasant oriented today. had eeg done. no c/o pain for me today. ambulated 1 min asst to bathroom. continues to have some mumbling, but improved. no other new concerns noted. bed in low position, call lite in reach, calls aprop
[2024-05-17 19:22] VITALS: BP 132/89
[2024-05-17] MEDS ORDERED: Acetaminophen 500 MG Tab PO PRN (23:40)
--- NOTE | 2024-05-18 04:13 | NUR ---
SHIFT SUMMARY PATIENT HAD NO ACUTE CHANGES. AXOX 4 AND ONE ASSIST FWW TO BR. SPEECH IMPROVING THIS SHIFT. ELECTRONICS PRODUCTION SUPERVISOR STRONG AND EQUAL. SOME WEAKNESS TO LOWER EXTREMITIES. PIV INTACT. TELE MONITOR SB 63. DENIES CHEST PAIN, SOB, AND N/V. VSS/AFEBRILE. COOPERATIVE WITH CARE. CALL LIGHT IN REACH. BED IN LOWEST POSITION. WILL CONTINUE TO MONITOR UNTIL DAY SHIFT NURSE ASSUMES CARE.
[2024-05-18 04:32] VITALS: BP 132/80
[2024-05-18] MEDS ORDERED: Insulin Human Lispro 100 Units/ML 3ML Syringe SC SCH (07:30)
[2024-05-18 07:38] VITALS: BP 127/42
[2024-05-18 16:54] VITALS: BP 134/66
[2024-05-18 17:33] LABS: Source, Urine Clean Catch
[2024-05-18 17:37] LABS: Appearance, Urine Cloudy (Clear); Bilirubin, Urine Neg (Neg); Blood, Urine 5+ (Neg); Glucose Qualitative, Urine Neg (Neg); Ketones, Urine Neg (Neg); Leukocyte Esterase, Urine 3+ (Neg); Nitrite, Urine Pos (Neg); Protein, Urine 1+ (Neg); Urobilinogen, Urine NORM (Normal)
[2024-05-18 17:43] LABS: Color, Urine Pale Yellow (P-Yellow)
[2024-05-18 17:44] LABS: White Blood Cells, Urine 50-100 /hpf (0-5)
[2024-05-18 17:45] LABS: Bacteria Many /hpf; Squamous Epithelial Cells Few /hpf (Few)
--- NOTE | 2024-05-18 17:50 | NUR ---
SHIFT SUMMARY PATIENT A/OX4, ABLE TO MAKE NEEDS KNOWN, PLEASANT AND COOPERATIVE. PATIENT COMPLAINING OF ABDOMINAL PAIN AND CRAMPING, BENTYL GIVEN PER MAR EFFECTIVE. ALSO COMPLAINING OF DYSURIA, UA OBTAINED AND PENDING CULTURES. ACHS BLOOD SUGAR MONITORING DISCONTINUED THIS SHIFT. NEW PIV PLACED TO PATIENT'S LEFT FA AND RIGHT FA PIV REMOVED DUE TO INFILTRATION. TELEMETRY MONITORING IN PLACE, NO EVENTS NOTED. NO OTHER CONCERNS AT THIS TIME.
[2024-05-18 20:09] VITALS: BP 136/80
[2024-05-19 03:44] VITALS: BP 124/63
[2024-05-19 07:44] VITALS: BP 134/59
[2024-05-19] MEDS ORDERED: Lactobacil 2-S.Thermo-Bifido 1 1 Cap PO SCH (09:00)
[2024-05-19] MEDS ORDERED: CefTRIAXone Sodium 1,000 MG in NS 100 ML IV SCH (09:00)
[2024-05-19 15:02] VITALS: BP 152/67
--- NOTE | 2024-05-19 17:27 | NUR ---
SHIFT SUMMARY PATIENT A/OX4, ABLE TO MAKE NEEDS KNOWN. COMPLAINING OF ANXIETY AND ABDOMINAL CRAMPING THIS AM, MEDICATED PER MAR WITH BENTYL AND ATIVAN. PATIENT STATES SHE TAKES ATIVAN SCHEDULED AT HOME. IV ABX INFUSED PER ORDERS. PARTICIPATED WITH OT THIS AM, AND WAS ABLE TO SHOWER. TELEMETRY IN PLACE, NO EVENTS NOTED THIS AM. PLAN TO DISCHARGE TO SNF TOMORROW. NO OTHER CONCERNS AT THIS TIME.
[2024-05-19 20:36] VITALS: BP 136/85
[2024-05-20 05:06] VITALS: BP 126/70
--- NOTE | 2024-05-20 05:17 | NUR ---
SHIFT SUMMARY. PATIENT IS A&OX4. PATIENT C/O ABDOMINAL CRAMPING-MEDICATED PER ORDERS. PATIENT REPORTS THAT SHE TAKES ATIVAN AT BEDTIME TO HELP WITH SLEEP-MEDICATED WITH ORDERED PRN ATIVAN. PATIENT TAKES PILLS WHOLE WITH WATER WITHOUT COMPLICATIONS. PATIENT IS ABLE TO MAKE HER NEEDS KNOWNS. TELE IS ON WITH LEADS IN PLACE-NO CARDIAC EPISODES NOTED THIS SHIFT. PATIENT CALLS APPROPRIATELY AND IS ABLE TO MAKE HER NEEDS KNWON. NO ACUTE CHANGES NOTED. BED IS LOCKED IN THE LOWEST POSITION WITH CALL LIGHT IN REACH. CARE IS ONGOING.
[2024-05-20 07:28] VITALS: BP 126/52
--- NOTE | 2024-05-20 07:57 | NUR ---
SHIFT CHANGE ASSUMED CARE OF PATIENT AT APPROX 0700. BEDISDE SHIFT REPORT DONE WITH ARNOLDO. PATIENT USING BATHROOM AT TIME OF REPORT. PATIENT A&OX4, EXPRESSES NO NEEDS AT TIME OF REPORT.
--- NOTE | 2024-05-20 08:50 | NUR ---
REPORT REPORT GIVEN TO OMER AT APPROX 0900. OMER WILL TAKE OVER CARE OF PATIENT.
[2024-05-20 11:38] LABS: SARS-Cov-2 (COVID-19) PCR, MMC NEGATIVE (NEGATIVE)
[2024-05-20] MEDS ORDERED: CEFU500T30 PO (11:51)
[2024-05-20] MEDS ORDERED: VISBIOME 112.51 EACH PO (11:52)
[2024-05-20] MEDS ORDERED: LEVE500 PO (11:52)
--- NOTE | 2024-05-20 12:43 | NUR ---
CALLED AND GAVE REPORT TO KENNEDY TOMLIN AT [facility]. PT ALSO NOTIFIED OF TRANSPORTATION AT 1400 TO [facility] WHOM STATED UNDERSTANDING. HARD SCRIPT FOR MEDICATION IS IN FOLDER TO GO WITH PT TO SNF.
--- NOTE | 2024-05-20 14:06 | NUR ---
DISCHARGE SUMMARY PT DC THIS SHIFT TO [facility]. PT WAS PICKED UP VIA TRANSPORTATION SERVICE AND LEFT VIA WHEELCHAIR. NURSING REPORT WAS CALLED TO [facility] AT 1235 AND GIVEN TO KENNEDY TOMLIN. HARD SCRIPT WAS PLACED IN PACKET AND GIVEN TO TRANSPORT TO GIVE TO SNF FACILITY UPON ARRIVAL.
== END 2024-05-20 14:07 | DRG 71 ==
LOC: ER 11:48 → MEDS 11:49
PROVIDERS: Student in an Organized Health Care Education/Training Program; ADMIT Internal Medicine
DX: G93.40 Encephalopathy, unspecified (principal); A69.20 Lyme disease, unspecified; E87.1 Hypo-osmolality and hyponatremia; I51.81 Takotsubo syndrome; N39.0 Urinary tract infection, site not specified; R56.9 Unspecified convulsions; G35 Multiple sclerosis; I11.0 Hypertensive heart disease with heart failure; I50.9 Heart failure, unspecified; M54.9 Dorsalgia, unspecified; G89.29 Other chronic pain; M79.7 Fibromyalgia; F41.9 Anxiety disorder, unspecified; B96.20 Unspecified Escherichia coli [E. coli] as the cause of diseases classified elsewhere; F32.A Depression, unspecified; E87.6 Hypokalemia; I48.0 Paroxysmal atrial fibrillation; M54.2 Cervicalgia; Z79.01 Long term (current) use of anticoagulants; Z79.899 Other long term (current) drug therapy; Z98.51 Tubal ligation status; Z98.890 Other specified postprocedural states; Z87.891 Personal history of nicotine dependence
CPT/HCPCS: 36415; 51702; 70450; 70496; 70498; 70551; 71045; 76536; 80048; 80053; 80320; 81001; 82947; 83735; 84436; 84439; 84443; 84481; 85025; 85027; 85730; 87077; 87086; 87186; 92610; 93005; 93010; 94664; 94760; 94762; 95819; 96361; 96365-59; 96366; 96367; 96375; 96376; 97110; 97112; 97116; 97116-CQ; 97162; 97165; 97530; 97530-CQ; 97535; 99285-25; A9270; G0378; G0480; J0696; J1885; J1953; J2405; J3480; J7030; J7042; J7050; Q9967; U0002

== ENCOUNTER → 2024-06-27 | Outpatient (CLI) | payer MEDICARE, OTHER ==
[~2024-06-27] MED LIST changes: +CEFU500T30 PO; +DICLOFENAC SODI50 GM TOP; +LEVE500 PO; +REMERON1510 PO; +VISBIOME 112.51 EACH PO; +VITAMIN D32000 UNI1 PO
[2024-06-27 19:58] LABS: BASOPHILS ABSOLUTE AUTO 0.06 K/mm3 (0.00-0.23); BASOPHILS PERCENT AUTO 1 % (0-2); EOSINOPHILS ABSOLUTE AUTO 0.11 K/mm3 (0.00-0.68); EOSINOPHILS PERCENT AUTO 2 % (0-6); Hematocrit 52.7 % (33.0-51.0); Hemoglobin 16.8 g/dL (11.5-16.0); IMMATURE GRAN ABSOLUTE AUTO 0.02 K/mm3 (0.00-0.10); IMMATURE GRAN PERCENT AUTO 0 % (0-1); LYMPHOCYTES ABSOLUTE AUTO 1.89 K/mm3 (0.84-5.20); LYMPHOCYTES PERCENT AUTO 25 % (21-46); MONOCYTES ABSOLUTE AUTO 0.74 K/mm3 (0.16-1.47); MONOCYTES PERCENT AUTO 10 % (4-13); Mean Corpuscular HGB 30.9 pg (26.0-34.0); Mean Corpuscular HGB Conc 31.9 g/dL (31.5-36.5); Mean Corpuscular Volume 97 fL (80-100); Mean Platelet Volume 9.8 fL (9.1-12.4); NEUTROPHILS ABSOLUTE AUTO 4.76 K/mm3 (1.96-9.15); NEUTROPHILS PERCENT AUTO 63 % (41-73); Platelet Count 287 K/mm3 (150-400); RDW Coefficient Variation 11.8 % (11.7-14.2); RDW Standard Deviation 42.3 fL (35.1-46.3); Red Blood Cell Count 5.43 M/mm3 (3.80-5.20); White Blood Cell Count 7.58 K/mm3 (4.00-11.30)
[2024-06-27 20:09] LABS: Very Low Density Lipoprot Chol 42 mg/dL (6-32)
[2024-06-27 20:13] LABS: Alanine Aminotransfer (ALT/SGP 19 U/L (12-78); Albumin, Blood 3.9 g/dL (3.4-5.0); Alk Phos 97 U/L (50-136); Anion Gap 8 mmol/L (3-11); Aspartate Aminotrans (AST/SGOT 22 U/L (12-37); Bilirubin, Total 0.4 mg/dL (0.1-1.0); Blood Urea Nitrogen 14 mg/dL (8-24); Bun/Creatinine Ratio 20.6 (12.0-20.0); CO2, Blood 33 mmol/L (21-32); Calcium, Blood 9.7 mg/dL (8.5-10.1); Chloride, Blood 98 mmol/L (98-108); Cholesterol 272 mg/dL (50-200); Creatinine, Blood 0.68 mg/dL (0.40-1.00); Globulin, Blood 4.1 g/dL (2.2-4.0); Glomerular Filtration Rate 94 (60-); Glucose, Blood 104 mg/dL (70-99); HDL Cholesterol 90 mg/dL (>39); LDL/HDL RATIO 1.6; Low Density Lipoprotein Chol 140 mg/dL (0-110); Potassium, Blood 4.3 mmol/L (3.5-5.5); Sodium, Blood 135 mmol/L (136-145); Triglycerides 212 mg/dL (30-160)
== END | disposition home or self-care (01) ==
LOC: LAB 19:09 → LAB SHORT 19:09
PROVIDERS: Nurse Practitioner Family
DX: I10 Essential (primary) hypertension (principal); N39.0 Urinary tract infection, site not specified; R73.01 Impaired fasting glucose
CPT/HCPCS: 80053; 80061; 83036; 85025; 87086

== ENCOUNTER 2024-07-16 17:50 | Inpatient (IN) | payer MEDICARE, OTHER ==
[~2024-07-16] VITALS: Ht 160 cm; Wt 60.0 kg
[~2024-07-16 17:50] MED LIST changes: +METO50ER PO
[2024-07-16 17:59] LABS: Calcium, Ionized (POC) 1.16 mmol/L (1.10-1.46); Chloride (POC) 99 mmol/L (98-108); Creatinine (POC) 0.7 mg/dL (0.6-1.0); Glucose (ISTAT POC) 117 mg/dL (70-99); Hemoglobin (POC) 17.3 g/dL (12.0-16.0); Potassium (POC) 5.2 mmol/L (3.5-5.5); Sodium (POC) 136 mmol/L (135-148); Total CO2 (POC) 31 mmol/L (21-32)
[2024-07-16 18:07] LABS: BASOPHILS ABSOLUTE AUTO 0.03 K/mm3 (0.00-0.23); BASOPHILS PERCENT AUTO 0 % (0-2); EOSINOPHILS PERCENT AUTO 0 % (0-6); Hematocrit 50.4 % (33.0-51.0); Hemoglobin 16.5 g/dL (11.5-16.0); IMMATURE GRAN ABSOLUTE AUTO 0.03 K/mm3 (0.00-0.10); IMMATURE GRAN PERCENT AUTO 0 % (0-1); LYMPHOCYTES ABSOLUTE AUTO 0.83 K/mm3 (0.84-5.20); LYMPHOCYTES PERCENT AUTO 10 % (21-46); MONOCYTES ABSOLUTE AUTO 0.27 K/mm3 (0.16-1.47); MONOCYTES PERCENT AUTO 3 % (4-13); Mean Corpuscular HGB 31.9 pg (26.0-34.0); Mean Corpuscular HGB Conc 32.7 g/dL (31.5-36.5); Mean Corpuscular Volume 98 fL (80-100); Mean Platelet Volume 9.1 fL (9.1-12.4); NEUTROPHILS ABSOLUTE AUTO 7.17 K/mm3 (1.96-9.15); NEUTROPHILS PERCENT AUTO 86 % (41-73); Platelet Count 281 K/mm3 (150-400); RDW Coefficient Variation 12.7 % (11.7-14.2); Red Blood Cell Count 5.17 M/mm3 (3.80-5.20); White Blood Cell Count 8.33 K/mm3 (4.00-11.30)
[2024-07-16 18:09] LABS: Base Excess Venous 5.7 mmol/L; Bicarbonate Venous 28.2 mmol/L (24.0-30.0); PCO2 Venous 50.6 mmHg (38-42); pH Blood Venous 7.39 (7.34-7.37)
[2024-07-16 18:21] LABS: International Normalized Ratio 0.99; Prothrombin Time Results 10.6 Sec (9.7-11.5)
[2024-07-16 18:30] LABS: Albumin/Globulin Ratio 1.1 (0.8-1.8); Bilirubin, Total 0.8 mg/dL (0.1-1.0); Calcium, Blood 10.2 mg/dL (8.5-10.1); Creatinine, Blood 0.59 mg/dL (0.40-1.00); Globulin, Blood 3.6 g/dL (2.2-4.0); Potassium, Blood 4.9 mmol/L (3.5-5.5); Total Protein, Blood 7.6 g/dL (6.4-8.2)
[2024-07-16 18:50] LABS: Source, Urine Straight Cath
[2024-07-16 19:00] LABS: Appearance, Urine Clear (Clear); Bilirubin, Urine Neg (Neg); Blood, Urine Neg (Neg); Color, Urine Yellow (P-Yellow); Glucose Qualitative, Urine 4+ (Neg); Ketones, Urine 1+ (Neg); Leukocyte Esterase, Urine Neg (Neg); Nitrite, Urine Neg (Neg); Urobilinogen, Urine NORM (Normal)
[2024-07-16 19:02] LABS: Protein, Urine 1+ (Neg)
[2024-07-16 19:08] LABS: Ethanol (Alcohol), Blood, Med <3 mg/dL; Salicylate 2.6 mg/dL (2.8-20.0)
[2024-07-16 19:11] LABS: U Amphetamine Screen Not Detected; U Barbituate Screen Not Detected; U Benzodiazapine Screen Not Detected; U Buprenorphine Screen Not Detected; U Cannabinoids Screen Not Detected; U Cocaine Screen Not Detected; U Methadone Screen DETECTED; U Methamphetamine Screen Not Detected; U Opiates Screen Not Detected; U Oxycodone Screen Not Detected; U Phencyclidine Screen Not Detected
[2024-07-16 20:08] LABS: Acetaminophen, Random <2.0 ug/mL (10.0-30.0)
[2024-07-16] MEDS ORDERED: Naloxone HCl 0.4MG / ML 1ML Vial IV ONE ×2 (21:00→21:30)
[2024-07-16] MEDS ORDERED: Naloxone HCl 0.4MG / ML 1ML Vial ONE (21:19)
[2024-07-16] MEDS ORDERED: D5W-1/2NS KCl 20mEq 1,000 ML IV SCH (21:40)
[2024-07-16] MEDS ORDERED: FLU VACC TS2024-25(6MOS UP)/PF 45 MCG/0.5 ML SYRINGE IM ONE (21:45)
[2024-07-16 23:30] VITALS: BP 176/92
[2024-07-17] VITALS (9 sets, daily range): BP systolic 124–188; BP diastolic 69–148
--- NOTE | 2024-07-17 02:48 | NUR ---
ADMIT ASSESSMENT PT ARRIVED TO FLOOR AT 2330 VIA CART FROM ED.TRANSFERRED TO BED,PT UNRESPONSIVE,ON 15L VIA NON-REBREATHER MASK.OXYGEN SATURATION 100%.RESPIRATORY THERAPIST PLACED PT ON ETCO2,OXYGEN FLOW RATE DECREASED TO 2L,PT MAINTAINING OXYGEN SATURATION AT 100%.ORAL CARE COMPLETED.PT'S SKIN COOL TO TOUCH,WARM BLANKETS USED TO WARM PT UP.
[2024-07-17 02:57] LABS: Base Excess Venous 6.8 mmol/L; Bicarbonate Venous 28.8 mmol/L (24.0-30.0); PCO2 Venous 50 mmHg (38-42); pH Blood Venous 7.41 (7.34-7.37)
[2024-07-17 03:00] LABS: BASOPHILS ABSOLUTE AUTO 0.03 K/mm3 (0.00-0.23); BASOPHILS PERCENT AUTO 0 % (0-2); EOSINOPHILS PERCENT AUTO 0 % (0-6); Hematocrit 49.9 % (33.0-51.0); Hemoglobin 16.5 g/dL (11.5-16.0); IMMATURE GRAN ABSOLUTE AUTO 0.03 K/mm3 (0.00-0.10); IMMATURE GRAN PERCENT AUTO 0 % (0-1); LYMPHOCYTES ABSOLUTE AUTO 1.03 K/mm3 (0.84-5.20); LYMPHOCYTES PERCENT AUTO 11 % (21-46); MONOCYTES PERCENT AUTO 9 % (4-13); Mean Corpuscular HGB 32.1 pg (26.0-34.0); Mean Corpuscular HGB Conc 33.1 g/dL (31.5-36.5); Mean Corpuscular Volume 97 fL (80-100); Mean Platelet Volume 9.1 fL (9.1-12.4); NEUTROPHILS ABSOLUTE AUTO 7.19 K/mm3 (1.96-9.15); NEUTROPHILS PERCENT AUTO 79 % (41-73); Platelet Count 269 K/mm3 (150-400); RDW Coefficient Variation 12.8 % (11.7-14.2); RDW Standard Deviation 45.6 fL (35.1-46.3); Red Blood Cell Count 5.14 M/mm3 (3.80-5.20); White Blood Cell Count 9.08 K/mm3 (4.00-11.30)
--- NOTE | 2024-07-17 03:14 | NUR ---
PROVIDER NOTIFICATION DR.GUITERREZ Wilson NOTIFIED OF PT'S OXYGEN LEVEL DROPPING TO 86% AND SUSTAINING,ABSENT GAG REFLEX.OXGEN FLOW RATE INCREASED TO 7L,PT'S OXYGEN SATURATION AT 89-90%.ORDER GIVEN FOR VBG AND TO ASK RESPIRATORY THERAPIST TO EVALUATE PT FOR BIPAP.
[2024-07-17 03:18] LABS: Albumin, Blood 3.9 g/dL (3.4-5.0); Albumin/Globulin Ratio 1.1 (0.8-1.8); Bilirubin, Total 0.6 mg/dL (0.1-1.0); Bun/Creatinine Ratio 24.1 (12.0-20.0); Calcium, Blood 10.2 mg/dL (8.5-10.1); Creatinine, Blood 0.58 mg/dL (0.40-1.00); Globulin, Blood 3.4 g/dL (2.2-4.0); Potassium, Blood 4.8 mmol/L (3.5-5.5); Total Protein, Blood 7.3 g/dL (6.4-8.2)
--- NOTE | 2024-07-17 03:19 | NUR ---
RESPIRATORY THERAPIST PLACED A 30FR TRUMPET TO LEFT NARE SINCE PT NOT ABLE TO MANAGE ORAL SECRETIONS.
[2024-07-17] MEDS ORDERED: levETIRAcetam 1,000 MG in NS 100 ML IV ONE (03:45)
--- NOTE | 2024-07-17 03:47 | NUR ---
CHANGE OF STATUS PT OPENING EYES ON HER,PUPILS REMAIN DILATED AND SLUGGISH,PT HAVING SEIZURE LIKE ACTIVITIES WITH ARMS AND LEGS JERKING.TRUMPED REMOVED.DR KRYSTINA WilsonNOTIFIED. GAVE ORDER FOR 1G OF KEPPRA IV NOW.THIS RN ASKED MD TO COME TO THE BEDSIDE TO EVALUATE PT. MD STATES THAT HE WILL COME TO THE BEDSIDE TO SEE PT IN 30 MINUTES.
[2024-07-17] MEDS ORDERED: LORazepam 2 MG/ML 1ML Injection IV PRN (04:10)
[2024-07-17 04:31] LABS: Magnesium, Blood 2.4 mg/dL (1.6-2.4); Phosphorus, Blood 6.6 mg/dL (2.5-4.9)
[2024-07-17] MEDS ORDERED: Enoxaparin 40 MG/0.4 ML SYR SC SCH (09:00)
[2024-07-17] MEDS ORDERED: levETIRAcetam 750 MG in NS 100 ML IV SCH (09:00)
--- NOTE | 2024-07-17 17:25 | NUR ---
ATTEMPTED GOALS OF CARE CONVERSATION PT IS LETHARGIC. RESPONDED TO NAME. SHE ANSWERED YES/NO QUESTIONS APPROPRIATLY. SHE STATED, "NO" TO PAIN, "YES" TO BEING COLD AND WANTING A WARM BLANKET. AFTER EACH INTERVENTION PROVIDED SHE SAID "THANK YOU" IN A WEAK VOICE. WORK OF BREATHING IMPROVED AFTER BOOSTED UP IN BED. PT IS CACHECTIC, CLAVICULAR PROTRUSION, MOTTLING NOTED TO BILAT KNEES. PPP X4, WEAK PEDAL PULSES. THICK SANZ SPUTUM. PRODUCTIVE COUGH, NOT ABLE TO CLEAR HER MOUTH INDEPENDENTLY. SPOUSE WAS NOT AT BEDSIDE DURING THIS PC RN'S VISIT. LEFT MESSAGE FOR HIM TO CALL BACK. PRIMARY RN TO CALL PC WHEN SPOUSE COMES BACK IN. PLAN: FOLLOW UP WITH PT AND SPOUSE TOMORROW 07/18/24 FOR GOALS OF CARE.
--- NOTE | 2024-07-17 17:59 | NUR ---
INITALLY THE PATIENT WAS NOT ORIENTED BUT FOLLOWED COMMANDS, THROUGHOUT THE DAY HER MENTATION IMPROVED AND SHE IS NOW A&OX3, NOT ORIENTED TO TIME HOWEVER SHE IS VERY FORGETFUL . VITALS WERE ALL STABLE. TWO BEDSIDE NURSING SWALLOW EVALS WERE DONE TODAY, SHE FAILED THE FIRST ONE BUT DID WELL ON THE SECOND. SHE IS ON A CLEAR LIQUID DIET BUT REFUSED DINNER. SHE REFUSED REPOSITIONING A FEW TIMES. MADE GOOD URINE OUTPUT WITH THE SHINE CATHETER, NO BM.
--- NOTE | 2024-07-17 21:46 | NUR ---
ASSUMPTION OF CARE: PATIENT WITH MUCH NEURO IMPROVEMENT COMPARED TO PREVIOUS SHIFT. IS ALERT AND ORIENTED X 2-3. PATIENT ABLE TO USE THE CALL LIGHT AT TIMES, COOPERATIVE, BED ALARM AND SEIZURE PADS IN PLACE, DENIES CHEST PAIN PRESSURE. IS MILDLY SOB AT REST. ON 1.5L NC SPO2 >94% IS NOW GAURDING AIRWAY, STILL ENDORSING FEELING OFF OR UNWELL, EDUCATED ABOUT PATIENT CONDITION AND POTENTIAL ETIOLOGIES. INCREASED MONITORING INPLACE, TELE, SPO2 CONTINUOUS. INCREASED ROUNDING. BED ALARM FOR SAFETY. PATIENT ATTEMPTED A BM AT THE START OF SHIFT. NO RESULTS, PATIENT RESTING CURRENLTY NO ACUTE SIGNS OF DISTRESS.
[2024-07-18 02:48] VITALS: BP 142/76
--- NOTE | 2024-07-18 06:27 | NUR ---
EOS: ONLY CHANGES FROM ASSUMPTION OF CARE ARE PATIENT AT 1.5 L OF O2, MENTATION CONTINUES TO IMPROVE. PASSING FLATULANCE WELL NO BM. STILL ENDORSING DIZZINESS AT TIMES, A COUPLE EPISODES OF SVT ASYMPTOMATIC SLEEPING. THAN 1 RUN OF 5 BEATS VTACH CALL TO PROVIDER. DENIES CHEST PAIN PRESSURE. REPOSITIONS FREQUENCTLY. HOME MED REC INCOMPLETE WILL INFORM DAY RN DUE TO COMES TO BEDSIDE.
[2024-07-18 07:22] LABS: Bun/Creatinine Ratio 23.7 (12.0-20.0); Calcium, Blood 9.2 mg/dL (8.5-10.1); Creatinine, Blood 0.55 mg/dL (0.40-1.00); Magnesium, Blood 2.1 mg/dL (1.6-2.4); Potassium, Blood 3.8 mmol/L (3.5-5.5)
[2024-07-18 07:26] VITALS: BP 136/73
[2024-07-18] MEDS ORDERED: Acetaminophen 500 MG Tab PO PRN (08:25)
[2024-07-18] MEDS ORDERED: Polyethylene Glycol 3350 17 gm PO PRN (08:25)
[2024-07-18 11:32] VITALS: BP 139/68
--- NOTE | 2024-07-18 13:20 | NUR ---
GOALS OF CARE VISIT WITH PATIENT AND SPOUSE. AGUSTIN IS ORIENTED TO SELF, FAMILY AND LOCATION. SHE IS ABLE TO ANSWER SIMPLE QUESTIONS. SHE CLEARLY STATED, "NO CPR. WHAT IS INCUBATION?" THIS PC RN EDUCATED ON INTUBATION AND OTHER AIR SUPPORTIVE MEASURES. SHE RESPONDED WITH, "WHAT ABOUT INCUBATION?" MULTIPULE TIMES T/O CONVERSATION. PT'S , ELIJAH EXPLAINED INTUBATION TO PT IN LAYMANS TERMS. SHE DOES NOT APPEAR TO COMPREHEND THE PROS/CONS OF ADVANCED AIR WAY INTERVENTIONS. [facility] REPORTS, "WE HAVE TALKED ABOUT HER NOT WANTING CPR AND NO MACHINES. SHE HAS A FORM WITH DNR AND FOCUS ON COMFORT." PT AGREEED WITH [facility], HER WANT FOR DNR. [facility] REPORTS PT FILLED OUT A POLST FORM WITH PCP WHEN SHE WAS ORIENTED TO SELF AND SITUATION, SIGNED BY HER PCP. POLST FORM OBTAINED FROM [facility]. COPY PLACED ON PT'S PAPER CHART. PT ENDOURCES POOR QUALITY OF LIFE AT BASELINE D/T ADVANCING MS, DECLINING MOBILITY AND CHRONIC PAIN. MINIMAL AMBULATION WITH WALKER. SHE REPORTS BEING UNSTEADY ON FEET. DENIES ANY RECENT FALLS. AGUSTIN HAS BEEN MANAGING HER OWN MEDICATIONS. SHE FILLS HER MED-DEPUTY CORONER EVERY THURSDAY. IT'S UNCLEAR HOW PT OBTAINED METHADONE (UTOX WAS POSITIVE FOR METHADONE ON ADMISSION). PLAN: CHANGE CARE PLAN FROM CURRATIVE TO COMFORT MEASURES. PROVIDER TO PLACE ORDERS. ADMIT TO HOSPICE SERVICES. PT/[facility] NO PREFFERENCE ON AGENCY. NO DM NEEDS AT THIS TIME. UPDATE PROVIDED TO PRIMARY RN, GAS PUMPING STATION OPERATOR AND CARE MANAGEMENT.
[2024-07-18] MEDS ORDERED: TRAM50 PO (14:24)
[2024-07-18] MEDS ORDERED: Morphine Sulfate 20 MG/1ML 1 ML Oral Syringe SL PRN (14:40)
[2024-07-18] MEDS ORDERED: LORazepam 2 MG/ML 1ML Injection IV PRN (14:40)
[2024-07-18 16:05] VITALS: BP 133/81
--- NOTE | 2024-07-18 17:11 | NUR ---
SHIFT SUMMARY: COMPARED TO REPORT OF PT STATUS OVER THE PAST COUPLE OF DAYS, PT APPEARS TO BE IMPROVING. SHE HAS BEEN ALERT, ORIENTED TO SELF, FAMILY, SOME SITUATION. PT HAS BEEN ASKING QUESTIONS R/TO CARE. NO SEIZURE LIKE ACTIVITY SO FAR THIS SHIFT. O2 TITRATED OFF AND PT's O2 SATS HAVE BEEN >92% ON RA. PT DENIES CP, SR/ST ON MONITOR PRIOR TO TELEMETRY BEING DC'd. INDWELLING SHINE PATENT, DRAINING TO GRAVITY. PT's DIET ADVANCED TO FULL LIQUID, PT BENEFITS FROM ASSISTANCE W/MEALS. PT CURRENTLY RESTING IN BED W/CALL LIGHT IN REACH.
[2024-07-18 20:42] VITALS: BP 123/84
[2024-07-18] MEDS ORDERED: Docusate Sodium/Senna 1 Tab PO SCH (21:00)
[2024-07-18] MEDS ORDERED: LevETIRAcetam 500 MG Tab PO SCH (21:00)
--- NOTE | 2024-07-18 21:40 | NUR ---
PT TRANSFERED FROM [facility]. PT ORIENTED TO ROOM AND INSTRUCTED ON THE CALL LIGHT SYSTEM.
--- NOTE | 2024-07-19 04:35 | NUR ---
SHIFT SUMMARY PT IS A/OX3-4, SOME CONFUSION AND FORGETFUL AT TIMES. PT RECIEVED PRN ATIVAN FOR SLEEP/ANXIETY X3 THROUGHOUT THIS SHIFT PER MAR. ON 1L NC IN ORDER TO MAINTAIN STATS 94-95%. RESPIRATIONS SHALLOW. PT REPORTS CHRONIC PAIN D/T HISTORY AND PROGRESSION OF MS.
[2024-07-19] MEDS ORDERED: MORP20L SL (14:08)
[2024-07-19] MEDS ORDERED: Keppra750 MG PO (14:09)
--- NOTE | 2024-07-19 14:44 | NUR ---
PT DISCHARGED HOME WITH HOSPICE. PRE MEDICATED WITH [facility] FOR TRANSPORT, PT SHOWERED, 1 PERSON ASSIST WITH FWW, SHINE CATHETER IN PLACE AT DISCHARGE
== END 2024-07-19 13:07 | disposition hospice, home (50) | DRG 91 ==
LOC: ER 17:50 → PCU 21:41 → ERHOLD 21:41 → MEDS 21:41 → PCU 23:29 → MEDS 07-18 21:36
PROVIDERS: Internal Medicine; Student in an Organized Health Care Education/Training Program; ADMIT Internal Medicine
DX: G92.8 Other toxic encephalopathy (principal); J96.01 Acute respiratory failure with hypoxia; Z66 Do not resuscitate; F11.90 Opioid use, unspecified, uncomplicated; G40.909 Epilepsy, unspecified, not intractable, without status epilepticus; F32.A Depression, unspecified; F41.9 Anxiety disorder, unspecified; M79.7 Fibromyalgia; I48.91 Unspecified atrial fibrillation; G35 Multiple sclerosis; G50.0 Trigeminal neuralgia; Z96.642 Presence of left artificial hip joint; F19.90 Other psychoactive substance use, unspecified, uncomplicated; I25.10 Atherosclerotic heart disease of native coronary artery without angina pectoris; G89.29 Other chronic pain; Z87.828 Personal history of other (healed) physical injury and trauma; Z98.51 Tubal ligation status; Z98.890 Other specified postprocedural states; Z79.899 Other long term (current) drug therapy; Z79.01 Long term (current) use of anticoagulants; Z87.19 Personal history of other diseases of the digestive system; Z87.891 Personal history of nicotine dependence; Z87.440 Personal history of urinary (tract) infections; Z87.81 Personal history of (healed) traumatic fracture; Z51.5 Encounter for palliative care; Z28.89 Immunization not carried out for other reason
CPT/HCPCS: 36415; 51702; 70450; 70496; 70498; 71045; 80047; 80048; 80053; 80320; 82550; 82803; 82947; 83735; 84100; 84484; 85014; 85025; 85610; 85730; 93005; 93010; 94760; 94762; 96374-59; 99285-25; A9270; G0480; J1650; J1953; J2060; J2310; Q9967

== ENCOUNTER → 2024-07-28 | Outpatient (CLI) | payer MEDICARE, OTHER ==
[~2024-07-28] MED LIST changes: +Keppra750 MG PO; +MORP20L SL
== END ==
LOC: LAB SHORT 17:48 → LAB 17:48
DX: R39.9 Unspecified symptoms and signs involving the genitourinary system (principal)
CPT/HCPCS: 87077; 87086; 87186

== ENCOUNTER → 2024-09-26 | Outpatient (CLI) | payer MEDICARE, OTHER ==
[2024-09-26 19:20] LABS: BASOPHILS ABSOLUTE AUTO 0.05 K/mm3 (0.00-0.23); BASOPHILS PERCENT AUTO 1 % (0-2); EOSINOPHILS ABSOLUTE AUTO 0.06 K/mm3 (0.00-0.68); EOSINOPHILS PERCENT AUTO 1 % (0-6); Hematocrit 53.2 % (33.0-51.0); Hemoglobin 17.6 g/dL (11.5-16.0); IMMATURE GRAN ABSOLUTE AUTO 0.02 K/mm3 (0.00-0.10); IMMATURE GRAN PERCENT AUTO 0 % (0-1); LYMPHOCYTES ABSOLUTE AUTO 2.14 K/mm3 (0.84-5.20); LYMPHOCYTES PERCENT AUTO 29 % (21-46); MONOCYTES ABSOLUTE AUTO 0.76 K/mm3 (0.16-1.47); MONOCYTES PERCENT AUTO 10 % (4-13); Mean Corpuscular HGB 31.7 pg (26.0-34.0); Mean Corpuscular HGB Conc 33.1 g/dL (31.5-36.5); Mean Corpuscular Volume 96 fL (80-100); Mean Platelet Volume 9.6 fL (9.1-12.4); NEUTROPHILS ABSOLUTE AUTO 4.36 K/mm3 (1.96-9.15); NEUTROPHILS PERCENT AUTO 59 % (41-73); Platelet Count 254 K/mm3 (150-400); RDW Coefficient Variation 12.1 % (11.7-14.2); RDW Standard Deviation 43.3 fL (35.1-46.3); Red Blood Cell Count 5.56 M/mm3 (3.80-5.20); White Blood Cell Count 7.39 K/mm3 (4.00-11.30)
[2024-09-26 22:50] LABS: Alanine Aminotransfer (ALT/SGP 20 U/L (12-78); Albumin, Blood 4.1 g/dL (3.4-5.0); Albumin/Globulin Ratio 1.1 (0.8-1.8); Alk Phos 81 U/L (50-136); Anion Gap 9 mmol/L (3-11); Aspartate Aminotrans (AST/SGOT 15 U/L (12-37); Bilirubin, Total 0.4 mg/dL (0.1-1.0); Blood Urea Nitrogen 13 mg/dL (8-24); Bun/Creatinine Ratio 23.5 (12.0-20.0); CHOL/HDL RATIO 3.8; CO2, Blood 30 mmol/L (21-32); Calcium, Blood 9.3 mg/dL (8.5-10.1); Chloride, Blood 95 mmol/L (98-108); Cholesterol 259 mg/dL (50-200); Creatinine, Blood 0.55 mg/dL (0.40-1.00); Globulin, Blood 3.6 g/dL (2.2-4.0); Glomerular Filtration Rate 99 (60-); Glucose, Blood 97 mg/dL (70-99); HDL Cholesterol 68 mg/dL (>39); LDL/HDL RATIO 2.1; Low Density Lipoprotein Chol 140 mg/dL (0-110); Potassium, Blood 4.3 mmol/L (3.5-5.5); Sodium, Blood 130 mmol/L (136-145); Total Protein, Blood 7.7 g/dL (6.4-8.2); Triglycerides 253 mg/dL (30-160); Very Low Density Lipoprot Chol 50 mg/dL (6-32)
== END | disposition home or self-care (01) ==
LOC: LAB SHORT 18:42 → LAB 18:42
PROVIDERS: Nurse Practitioner Family
DX: Z51.81 Encounter for therapeutic drug level monitoring (principal); Z79.899 Other long term (current) drug therapy
CPT/HCPCS: 80053; 80061; 82306; 83036; 84443; 85025